=== PATIENT | male | born 1990 | race Caucasian/White ===

== ENCOUNTER 2016-08-26 20:30 | Inpatient (IN) | payer BC ==
[~2016-08-26] VITALS: Ht 177.8 cm; Wt 90.9 kg
[2016-08-26] MEDS ORDERED: BUPRTAB51 PO (21:19)
[2016-08-26] MEDS ORDERED: FLUO20CA35 PO (21:20)
[2016-08-26] MEDS ORDERED: SODIUM CHLORIDE 0.9% 1000ML 1,000 ML IV STA ×2 (21:32→22:13)
[2016-08-26] MEDS ORDERED: ONDANSETRON INJ 2 MG/ML 2 ML VIAL IV STA (21:32)
[2016-08-26 21:42] LABS: BASO % 0.1 %; BASO ABS # 0.02 K/uL (0-0.2); COMPLETE YES; EOS % 2.7 %; HEMATOCRIT 43.2 % (42-52); IG% 0.3 %; LYMPH ABS # 1.17 K/uL (1.2-3.4); MEAN CELL VOLUME 81.8 fL (80-100); MEAN CORPUSCULAR HEMOGLOBIN 28.8 pg (25-34); MEAN CORPUSCULAR HGB CONC 35.2 g/dl (32-36); MONO % 7.6 %; NEUT % 81.3 %; PLATELET COUNT 300 K/uL (130-400); RED BLOOD COUNT 5.28 M/uL (4.7-6.1); WHITE BLOOD COUNT 14.63 K/uL (4.8-10.8)
[2016-08-26 22:02] LABS: BUN/CREATININE RATIO 13.3 (10-20); CALCIUM 8.6 mg/dl (8.5-10.1); CREATININE 0.84 mg/dl (0.60-1.40); POTASSIUM 3.9 mmol/L (3.5-5.1)
[2016-08-26 22:05] LABS: ALB/GLOB RATIO 0.9 (0.9-2)
[2016-08-26] MEDS ORDERED: HYDROmorphone INJ 1 MG/ML SYR IV STA (22:13)
[2016-08-26] MEDS ORDERED: KETOROLAC TROMETHAMINE 30 MG/ML VIAL IV STA (22:13)
[2016-08-26] MEDS ORDERED: OPTIRAY 320 IV PRN (22:30)
--- NOTE | 2016-08-26 22:59 | DIAGNOSTIC IMAGING REPORT ---
GALLBLADDER-ABD LIMITED CLINICAL HISTORY: upper abd pain COMPARISON STUDY: No previous studies for comparison. FINDINGS: The liver appears sonographically normal. The pancreas appears normal as visualized. There is no ductal dilatation. The common bile duct measures 4 mm. Multiple gallstones are visualized. There is borderline gallbladder wall thickening (4 mm). There is no pericholecystic fluid. There is no right-sided hydronephrosis. There is a complex 19 mm right renal cyst. IMPRESSION: 1. Cholelithiasis with borderline gallbladder wall thickening. No evidence of pericholecystic fluid. No evidence of ductal dilatation. 2. Mildly complex 19 mm lower pole right renal cyst 3. No hepatic or pancreatic abnormalities identified. Electronically signed by: Jadon Sweet M.D. 08/26/2016 10:57 PM
--- NOTE | 2016-08-26 23:38 | EMERGENCY ROOM VISIT NOTE ---
History Report prepared by Elly: Aravidn Orr Under the Supervision of: Dr. Eber Lopez M.D. First contact with patient: 21:30 Chief Complaint: ABDOMINAL PAIN Stated Complaint: STOMACH CRAMPS Nursing Triage Summary: pt c/o severe mid abd pain x the past 2-3 days. worsening. vomiting x1 after meds on sunday. denies current n/v/d History of Present Illness The patient is a 25 year old male who presents to the Emergency Room with complaints of persistent abdominal pain for the past three days. The patient notes that the pain is mostly in the right upper abdomen. He also complains of nausea, vomiting, and diarrhea. He notes that the pain worsened tonight and so he presented to the ED for further evaluation. Source of History: patient Onset: 3 days Position: abdomen (RUQ) Timing: worsening, other (persistent) Associated Symptoms: + diarrhea, + nausea, + vomiting Review of Systems See HPI for pertinent positives & negatives. A total of 10 systems reviewed and were otherwise negative. Past Medical & Surgical Medical Problems: (1) No pertinent past medical history Family History Patient reports no known family medical history. Social History Smoking Status: Current Every Day Smoker Occupation Status: employed Current/Historical Medications Scheduled Bupropion (Wellbutrin-Xl), 300 MG PO BID Fluoxetine (Prozac), 20 MG PO DAILY Allergies Coded Allergies: Amoxicillin (Verified Allergy, Mild, RASH, 08/27/16) Physical Exam Vital Signs Date Time Temp Pulse Resp B/P Pulse Ox O2 Delivery O2 Flow Rate FiO2 08/27/16 00:04 82 18 161/94 99 Room Air 08/26/16 21:10 75 08/26/16 20:53 36.8 08/26/16 20:32 81 22 151/102 96 Room Air Physical Exam CONSTITUTIONAL: Moderate to severe painful distress HEENT: No icterus, moist mucous membranes NECK: No meningismus, trachea is midline. CARDIOVASCULAR: Regular rate, normal perfusion RESPIRATORY: Unlabored breathing. Clear to auscultation. GASTROINTESTINAL: Moderate RUQ tenderness GENITOURINARY: No flank tenderness MUSCULOSKELETAL: Full range of motion NEUROLOGIC: No acute gross focal deficits. PSYCHIATRIC: Normal affect SKIN: Normal for ethnicity. Medical Decision & Procedures ER Provider Diagnostic Interpretation: US results as stated below per my review and radiologist interpretation. GALLBLADDER-ABD LIMITED CLINICAL HISTORY: upper abd pain COMPARISON STUDY: No previous studies for comparison. FINDINGS: The liver appears sonographically normal. The pancreas appears normal as visualized. There is no ductal dilatation. The common bile duct measures 4 mm. Multiple gallstones are visualized. There is borderline gallbladder wall thickening (4 mm). There is no pericholecystic fluid. There is no right-sided hydronephrosis. There is a complex 19 mm right renal cyst. IMPRESSION: 1. Cholelithiasis with borderline gallbladder wall thickening. No evidence of pericholecystic fluid. No evidence of ductal dilatation. 2. Mildly complex 19 mm lower pole right renal cyst 3. No hepatic or pancreatic abnormalities identified. Electronically signed by: Jadon Sweet M.D. 08/26/2016 10:[address] ABDOMEN & PELVIS Suggestion of wall thickening and pericholecystic edema through no radiopaque gallstone is seen. Could represent acute acalculous cholecystis. Dedicated ultrasound may be useful. Vague bandlike hypodensities in the anterior left and right hepatic lobe (series 2, image 26). Probably due to transient hepatic attenuation/ enhancement differences. No definite mass effect. Right renal hypodensity, probably a simple cyst. Question mild fatty infiltration of the descending colonic wall. Could be due to chronic inflammatory bowel disease. Correlate clinically. Remainder of examination shows no definite evidence for an acute inflammatory process. Laboratory Results 08/26/16 21:04 Red Blood Count 5.28, Mean Corpuscular Volume 81.8, Mean Corpuscular Hemoglobin 28.8, Mean Corpuscular Hemoglobin Concent 35.2, Mean Platelet Volume 10.0, Neutrophils (%) (Auto) 81.3, Lymphocytes (%) (Auto) 8.0, Monocytes (%) (Auto) 7.6, Eosinophils (%) (Auto) 2.7, Basophils (%) (Auto) 0.1, Neutrophils # (Auto) 11.90, Lymphocytes # (Auto) 1.17, Monocytes # (Auto) 1.11, Eosinophils # (Auto) 0.39, Basophils # (Auto) 0.02 08/26/16 21:04 Test 08/26/16 20:50 08/26/16 21:04 08/26/16 21:32 White Blood Count 14.63 K/uL (4.8-10.8) Red Blood Count 5.28 M/uL (4.7-6.1) Hemoglobin 15.2 g/dL (14.0-18.0) Hematocrit 43.2 % (42-52) Mean Corpuscular Volume 81.8 fL (80-100) Mean Corpuscular Hemoglobin 28.8 pg (25-34) Mean Corpuscular Hemoglobin Concent 35.2 g/dl (32-36) Platelet Count 300 K/uL (130-400) Mean Platelet Volume 10.0 fL (7.4-10.4) Neutrophils (%) (Auto) 81.3 % Lymphocytes (%) (Auto) 8.0 % Monocytes (%) (Auto) 7.6 % Eosinophils (%) (Auto) 2.7 % Basophils (%) (Auto) 0.1 % Neutrophils # (Auto) 11.90 K/uL (1.4-6.5) Lymphocytes # (Auto) 1.17 K/uL (1.2-3.4) Monocytes # (Auto) 1.11 K/uL (0.11-0.59) Eosinophils # (Auto) 0.39 K/uL (0-0.5) Basophils # (Auto) 0.02 K/uL (0-0.2) RDW Standard Deviation 40.5 fL (36.4-46.3) RDW Coefficient of Variation 13.4 % (11.5-14.5) Immature Granulocyte % (Auto) 0.3 % Immature Granulocyte # (Auto) 0.04 K/uL (0.00-0.02) Anion Gap 10.0 mmol/L (3-11) Est Creatinine Clear Calc Drug Dose 152.4 ml/min Estimated GFR () 141.0 Estimated GFR (Non- 121.7 BUN/Creatinine Ratio 13.3 (10-20) Calcium Level 8.6 mg/dl (8.5-10.1) Total Bilirubin 0.3 mg/dl (0.2-1) Direct Bilirubin 0.1 mg/dl (0-0.2) Aspartate Amino Transf (AST/SGOT) 23 U/L (15-37) Alanine Aminotransferase (ALT/SGPT) 57 U/L (12-78) Alkaline Phosphatase 102 U/L (45-117) Total Protein 8.0 gm/dl (6.4-8.2) Albumin 3.8 gm/dl (3.4-5.0) Globulin 4.2 gm/dl (2.5-4.0) Albumin/Globulin Ratio 0.9 (0.9-2) Lipase 80 U/L (73-393) Labs reviewed by ED physician. Medications Administered Medications (Trade) Dose Ordered Sig/Jason Route Start Time Stop Time Status Last Admin Dose Admin Sodium Chloride (Nss 1000ml) 1,000 ml @ 0 mls/hr Q0M STAT IV 08/26/16 21:32 08/26/16 21:33 DC 08/26/16 21:44 0 MLS/HR Ondansetron HCl 4 mg 4 mg NOW STAT IV 08/26/16 21:32 08/26/16 21:33 DC 08/26/16 21:44 4 MG Sodium Chloride (Nss 1000ml) 1,000 ml @ 0 mls/hr Q0M STAT IV 08/26/16 22:13 08/26/16 22:15 DC 08/26/16 22:13 0 MLS/HR Ketorolac Tromethamine (Toradol Inj) 30 mg NOW STAT IV 08/26/16 22:13 08/26/16 22:15 DC 08/26/16 22:21 30 MG Hydromorphone HCl (Dilaudid Inj) 1 mg PRN STAT IV 08/26/16 22:13 08/26/16 22:15 DC 08/26/16 22:21 1 MG Hydromorphone HCl (Dilaudid Inj) 1 mg PRN STAT IV 08/27/16 00:05 08/27/16 00:07 DC 08/27/16 00:05 1 MG ED Course 0: Past medical records reviewed. The patient was evaluated in room A10. A complete history and physical examination was performed. 2: Ordered Zofran Inj 4 mg IV, NSS 1000 ml @ 0 mls/hr Wide Open IV. 3: Ordered Dilaudid Inj 1 mg IV, Toradol Inj 30 mg IV, NSS 1000 ml @ 0 mls/ hr wide open IV. 2230: Ordered Ioversol 125 ml IV/ Interaction Checking 2344: At this time, I consulted with Dr. Kruger about the patient's case and he requested that the patient go to a hospitalist before he sees him in the morning. 0004: At this time, I discussed the patient's case with Dr. Brandon Rudd and he agreed to accept the patient for further evaluation. Medical Decision Differentials include cholecystitis, pancreatitis, or viral syndrome. 25-year-old presents into the emergency room for evaluation of worsening upper abdominal pain for 2-3 days associated with nonbilious nonbloody vomiting and diarrhea at times. He appeared very uncomfortable with moderate to severe epigastric and right upper quadrant tenderness but without rebound or guarding. Ultrasound concerning for cholecystitis in context of visible cholelithiasis as well as leukocytosis. Case discussed with Dr. Kruger who will see patient in morning and admission arranged with Dr. Jatinder jean baptiste/ [facility] hospitalist service. Consults Time Called: [id number] Consulting Physician: Dr. Kruger - [facility] Returned Call: [phone] At this time, I consulted with Dr. Kruger about the patient's case and he requested that the patient go to a hospitalist before he sees him in the morning. Additional Consults: Time Called: 2339 Consulted Physician: Dr. Taylor - [facility] Rudd Returned Call: [phone] Additional Comments: At this time, I discussed the patient's case with Dr. Taylor - [facility]ael[facility] Rudd and he agreed to accept the patient for further evaluation. Impression Primary Impression: Cholecystitis Scribe Attestation The scribe's documentation has been prepared under my direction and personally reviewed by me in its entirety. I confirm that the note above accurately reflects all work, treatment, procedures, and medical decision making performed by me. Departure Information Dispostion Being Evaluated By Hospitalist Referrals Ny Miranda D.O. (PCP)
[2016-08-27] VITALS (9 sets, daily range): BP systolic 117–142; BP diastolic 72–89; PULSE 79–120; TEMP 36.6–36.9; O2SAT 90–96; Ht 177.8 cm; Wt 90.9 kg
[2016-08-27] MEDS ORDERED: HYDROmorphone INJ 1 MG/ML SYR IV STA (00:05)
[2016-08-27] MEDS ORDERED: TRAMADOL HCL 50 MG TAB PO PRN (00:30)
[2016-08-27] MEDS ORDERED: LACTATED RINGER'S 1000ML 1,000 ML IV SCH (00:30)
[2016-08-27] MEDS ORDERED: ONDANSETRON INJ 2 MG/ML 2 ML VIAL IV PRN ×3 (00:30→11:30)
[2016-08-27 00:45] LABS: URINE APPEARANCE CLEAR (CLEAR); URINE BILIRUBIN NEG (NEG); URINE COLOR YELLOW; URINE NITRITE NEG (NEG); URINE PH 6.5 (4.5-7.5); URINE SPECIFIC GRAVITY > 1.045 (1.000-1.030); UROBILINOGEN NEG (NEG)
[2016-08-27 00:47] LABS: MANUAL MICROSCOPIC REQUIRED? NO; REVIEW REQ? NO
[2016-08-27 00:48] LABS: MAGNESIUM 2.4 mg/dl (1.8-2.4); THYROID STIMULATING HORMONE 1.29 uIu/ml (0.300-4.500)
[2016-08-27] MEDS ORDERED: METRONIDAZOLE 500MG / 100ML NSS IV STA (00:54)
[2016-08-27] MEDS ORDERED: CIPROFLOXACIN 400MG / 200ML D5W IV STA (00:54)
[2016-08-27] MEDS ORDERED: LORAZEPAM 2 MG/ML 1 ML VIAL IV PRN (01:00)
[2016-08-27] MEDS ORDERED: METRONIDAZOLE 500MG / 100ML NSS ONE (01:03)
[2016-08-27] MEDS ORDERED: CIPROFLOXACIN 400MG / 200ML D5W ONE (01:03)
[2016-08-27] MEDS ORDERED: MoRPHine SULFATE 4 MG/ML 1 ML CARP\\VIAL IV STA (01:05)
[2016-08-27] MEDS ORDERED: PROMETHAZINE HCL INJ 12.5 MG in SODIUM CHLORIDE 0.9% 50ML 50 ML IV PRN (01:30)
[2016-08-27] MEDS ORDERED: ACETAMINOPHEN 325 MG TAB PO PRN ×2 (01:30→22:15)
[2016-08-27] MEDS ORDERED: LORAZEPAM 2 MG/ML 1 ML VIAL IV STA (01:31)
[2016-08-27] MEDS: LACTATED RINGER'S 1000ML 1,000 ML IV SCH ×3 (02:00→19:55)
[2016-08-27] MEDS ORDERED: CIPROFLOXACIN / D5W 400 MG in PREMIXED IN D5W 200 ML IV SCH ×2 (02:30→17:45)
[2016-08-27] MEDS ORDERED: LORAZEPAM INJ 0.5 MG in SYRINGE 0.75 ML IV PRN (02:30)
[2016-08-27] MEDS ORDERED: METRONIDAZOLE / NSS 500 MG in PREMIXED NSS 100 ML IV SCH (03:00)
[2016-08-27] MEDS ORDERED: PANTOprazole INJ 40 MG in SYRINGE 0 ML IV STA (03:46)
[2016-08-27] MEDS: MoRPHine SULFATE 4 MG/ML 1 ML CARP\\VIAL IV PRN ×2 (04:04→08:35)
[2016-08-27] MEDS: KETOROLAC TROMETHAMINE 30 MG/ML VIAL IV PRN (05:35)
--- NOTE | 2016-08-27 06:55 | DIAGNOSTIC IMAGING REPORT ---
CT SCAN OF THE ABDOMEN AND PELVIS WITH IV CONTRAST CLINICAL HISTORY: Upper abdominal pain and cramping. COMPARISON STUDY: Abdominal ultrasound dated 08/26/2016. TECHNIQUE: Following the IV administration of 115 cc of Optiray 320, CT scan of the abdomen and pelvis is performed from the lung bases to the proximal femora. Images are reviewed in the axial, sagittal, and coronal planes. IV contrast was administered without complication. Automated dose control exposure was utilized. CT DOSE: 681.18 mGy.cm FINDINGS: Lung bases: The heart is normal in size and without pericardial effusion. Atelectasis is noted at the right lung base. The lung bases are otherwise clear. Liver: The contrast-enhanced liver is enlarged, measuring 20.8 cm in length. The liver demonstrates diffusely diminished attenuation consistent with hepatic steatosis. More focal fatty infiltration is seen adjacent to falciform ligament. There is no intrahepatic biliary ductal dilatation. The hepatic veins and portal veins are patent. Gallbladder: The gallbladder is distended. There is gallbladder wall thickening with pericholecystic stranding and fluid. The appearance is consistent with acute cholecystitis. Spleen: The spleen is mildly enlarged, measuring 13.6 cm in length. Pancreas: Unremarkable. Adrenal glands: Unremarkable. Kidneys: The contrast enhanced kidneys are normal in size and without hydronephrosis. The kidneys enhance symmetrically. There is a 2.5 cm cyst in the right lower pole. Abdominal vasculature: The abdominal aorta is normal in course and caliber. Bowel: The small bowel and colon are normal in course and caliber. The appendix is well-visualized and normal. Peritoneum: There is no intraperitoneal free air. There is a small fat-containing umbilical hernia. Lymphadenopathy: None. Pelvic viscera: The bladder, prostate, and seminal vesicles are normal as visualized. Trace free fluid is identified in the pelvis. Penile calcifications are incidentally noted. Skeletal structures: No lytic or blastic lesions are seen. IMPRESSION: 1. Findings are consistent with acute cholecystitis. Surgical consultation is advised. 2. Hepatomegaly and hepatic steatosis. 3. Mild splenomegaly. 4. There is trace free fluid in the pelvis, likely reactive. Electronically signed by: Arturo Coffey M.D. 08/27/2016 6:53 AM
[2016-08-27 06:57] LABS: BASO % 0.1 %; BASO ABS # 0.02 K/uL (0-0.2); COMPLETE YES; EOS % 0.3 %; HEMATOCRIT 40.2 % (42-52); IG% 0.2 %; LYMPH % 5.9 %; LYMPH ABS # 0.94 K/uL (1.2-3.4); MEAN CELL VOLUME 82.9 fL (80-100); MEAN CORPUSCULAR HEMOGLOBIN 28.9 pg (25-34); MEAN CORPUSCULAR HGB CONC 34.8 g/dl (32-36); MEAN PLATELET VOLUME 10.1 fL (7.4-10.4); MONO % 8.3 %; NEUT % 85.2 %; PLATELET COUNT 270 K/uL (130-400); RED BLOOD COUNT 4.85 M/uL (4.7-6.1); WHITE BLOOD COUNT 15.98 K/uL (4.8-10.8)
[2016-08-27 07:26] LABS: ALT/SGPT 47 U/L (12-78); BLOOD UREA NITROGEN 8 mg/dl (7-18); BUN/CREATININE RATIO 13.4 (10-20); CALCIUM 8.1 mg/dl (8.5-10.1); CARBON DIOXIDE 24 mmol/L (21-32); CHLORIDE 104 mmol/L (98-107); CREATININE 0.58 mg/dl (0.60-1.40); GLUCOSE 122 mg/dl (70-99); POTASSIUM 3.7 mmol/L (3.5-5.1); SODIUM 137 mmol/L (136-145)
[2016-08-27 07:29] LABS: ALB/GLOB RATIO 0.8 (0.9-2); ALKALINE PHOSPHATASE 88 U/L (45-117); AST/SGOT 20 U/L (15-37)
--- NOTE | 2016-08-27 08:16 | Pre-Operative Consultation ---
History General Date of Service: Aug 27, 2016. HPI HPI: The patient is a 25 year old male being seen for acute cholecystitis. He presented with 3 days of intermittent abdominal pain which got worse last night. The patient notes that the pain is mostly in the right upper abdomen. He also complains of nausea, vomiting, and diarrhea. An ultrasound shows acute cholecystitis. 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; left sided residual deficit) Past Surgical History: no surgical history Family History Family History: no pertinent family hx Social History Hx Tobacco Use In Past Year?: Yes Smoking Status: Current Every Day Smoker Alcohol: none Drug Use: none Marital status: single Housing status: lives with family Occupation status: student Allergies Allergies: Coded Allergies: Amoxicillin (Verified Allergy, Mild, RASH, 08/27/16) Medications Current Inpatient Medications Current Inpatient Medications Medications (Trade) Dose Ordered Sig/Jason Route Start Time Stop Time Status Last Admin Dose Admin Ioversol (Optiray 320) 125 ml UD PRN IV 08/26/16 22:30 08/30/16 22:29 Tramadol HCl (Ultram Tab) 25 mg Q6H PRN PO 08/27/16 00:30 09/26/16 00:29 08/27/16 02:31 25 MG Morphine Sulfate (MoRPHine SULFATE INJ) 4 mg Q3H PRN IV 08/27/16 00:30 08/27/16 04:04 4 MG Ondansetron HCl (Zofran Inj) 4 mg Q6H PRN IV 08/27/16 00:30 09/26/16 00:29 Lorazepam 0.5 mg 0.5 mg Q4H PRN IV 08/27/16 01:00 Lactated Ringer's (Lr 1000ml) 1,000 ml @ 100 mls/hr Q10H IV 08/27/16 02:00 09/26/16 01:59 08/27/16 02:00 100 MLS/HR Acetaminophen (Tylenol Tab) 650 mg Q4H PRN PO 08/27/16 01:30 09/26/16 01:29 Bupropion HCl (Wellbutrin-Xl Tab) 300 mg BID PO 08/27/16 09:00 09/26/16 08:59 Fluoxetine HCl 20 mg 20 mg DAILY PO 08/27/16 09:00 09/26/16 08:59 Promethazine HCl 12.5 mg/Sodium Chloride 50.5 ml @ 204 mls/hr Q6H PRN IV 08/27/16 01:30 09/26/16 01:29 Ciprofloxacin/ Dextrose 400 mg/ Prmx 200 ml @ 100 mls/hr Q12H IV 08/27/16 13:00 09/06/16 12:59 Metronidazole/Prmx (Flagyl / Nss/ Premixed Nss) 100 ml @ 100 mls/hr Q8H IV 08/27/16 09:00 09/06/16 08:59 Ketorolac Tromethamine 30 mg 30 mg Q6H PRN IV 08/27/16 02:30 09/01/16 02:29 08/27/16 05:35 30 MG Lorazepam/Syringe (Ativan Inj/ Syringe) 1 ml @ 1 mls/min Q4H PRN IV 08/27/16 02:30 09/26/16 02:29 Review of Systems Review of Systems Constitutional: denies chills, denies diaphoresis, denies fever, denies weakness Eyes: reports: no symptoms ENT: reports: no symptoms reported Cardiovascular: denies: chest pain, chest pressure, chest tightness, palpitations, syncope Respiratory: denies: cough, cyanosis, short of breath, stridor Gastrointestinal: abdominal pain, denies constipation, denies diarrhea, nausea , vomiting Genitourinary - Male: reports: no symptoms Musculoskeletal: denies back pain, denies joint pain, denies joint swelling, denies muscle stiffness, denies neck pain Integumentary: denies change in color, denies change in hair/nails, denies dryness, denies lumps, denies rash Neurologic: reports: focal weakness, denies: general weakness Psychiatric: reports: no symptoms Endocrine: no symptoms Hematologic / Lymphatic: no symptoms Allergic / Immunologic: no symptoms Physical Exam Physical Exam General Appearance: + WD/WN, No distress Ears, Nose, Throat: + normal ENT inspection Neck: No abnormal inspection, No lymphadenophy, No stiffness, No tenderness, No tracheal deviation Respiratory: No decreased breath sounds, No rhonchi, No stridor, No wheezing Cardiovascular: No bradycardia, No diastolic murmur, No gallop/S3, No gallop/S4 , No systolic murmur, No tachycardia Abdomen: + abnormal bowel sounds, + distension, + guarding, + tenderness, No hernia, No rebound Extremities: No calf tenderness, No deformity, No inflammation, No swelling Neurologic/Psychiatric: No disorientation, No motor deficit/weakness, No sensory deficit Skin Characteristics: No abnormal color, No cyanosis, No diaphoresis, No jaundice, No pallor, No rash Lymphatic: No abnormal adenopathy Diagnostics Labs Labs Results Past 24 Hours Test 08/26/16 20:50 08/26/16 21:04 08/27/16 00:27 08/27/16 06:12 Range/Units Influenza Type A Antigen Neg for Influ A NEG Influenza Type B Antigen Neg for Influ B NEG White Blood Count 14.63 15.98 4.8-10.8 K/uL Red Blood Count 5.28 4.85 4.7-6.1 M/uL Hemoglobin 15.2 14.0 14.0-18.0 g/dL Hematocrit 43.2 40.2 42-52 % Mean Corpuscular Volume 81.8 82.9 80-100 fL Mean Corpuscular Hemoglobin 28.8 28.9 25-34 pg Mean Corpuscular Hemoglobin Concent 35.2 34.8 32-36 g/dl Platelet Count 300 270 130-400 K/uL Mean Platelet Volume 10.0 10.1 7.4-10.4 fL Neutrophils (%) (Auto) 81.3 85.2 % Lymphocytes (%) (Auto) 8.0 5.9 % Monocytes (%) (Auto) 7.6 8.3 % Eosinophils (%) (Auto) 2.7 0.3 % Basophils (%) (Auto) 0.1 0.1 % Neutrophils # (Auto) 11.90 13.62 1.4-6.5 K/uL Lymphocytes # (Auto) 1.17 0.94 1.2-3.4 K/uL Monocytes # (Auto) 1.11 1.32 0.11-0.59 K/uL Eosinophils # (Auto) 0.39 0.05 0-0.5 K/uL Basophils # (Auto) 0.02 0.02 0-0.2 K/uL RDW Standard Deviation 40.5 40.7 36.4-46.3 fL RDW Coefficient of Variation 13.4 13.5 11.5-14.5 % Immature Granulocyte % (Auto) 0.3 0.2 % Immature Granulocyte # (Auto) 0.04 0.03 0.00-0.02 K/uL Sodium Level 141 137 136-145 mmol/L Potassium Level 3.9 3.7 3.5-5.1 mmol/L Chloride Level 106 104 98-107 mmol/L Carbon Dioxide Level 25 24 21-32 mmol/L Anion Gap 10.0 9.0 3-11 mmol/L Blood Urea Nitrogen 11 8 7-18 mg/dl Creatinine 0.84 0.58 0.60-1.40 mg/dl Est Creatinine Clear Calc Drug Dose 152.4 220.7 ml/min Estimated GFR () 141.0 > 150.0 Estimated GFR (Non- 121.7 141.7 BUN/Creatinine Ratio 13.3 13.4 10-20 Random Glucose 128 122 70-99 mg/dl Calcium Level 8.6 8.1 8.5-10.1 mg/dl Magnesium Level 2.4 1.8-2.4 mg/dl Total Bilirubin 0.3 0.5 0.2-1 mg/dl Direct Bilirubin 0.1 0-0.2 mg/dl Aspartate Amino Transf (AST/SGOT) 23 20 15-37 U/L Alanine Aminotransferase (ALT/SGPT) 57 47 12-78 U/L Alkaline Phosphatase 102 88 45-117 U/L Total Protein 8.0 7.1 6.4-8.2 gm/dl Albumin 3.8 3.2 3.4-5.0 gm/dl Globulin 4.2 3.9 2.5-4.0 gm/dl Albumin/Globulin Ratio 0.9 0.8 0.9-2 Lipase 80 73-393 U/L Thyroid Stimulating Hormone (TSH) 1.290 0.300-4.500 uIu/ml Urine Color YELLOW Urine Appearance CLEAR CLEAR Urine pH 6.5 4.5-7.5 Urine Specific [place] > 1.045 1.000-1.030 Urine Protein NEG NEG Urine Glucose (UA) NEG NEG Urine Ketones NEG NEG Urine Occult Blood NEG NEG Urine Nitrite NEG NEG Urine Bilirubin NEG NEG Urine Urobilinogen NEG NEG Urine Leukocyte Esterase NEG NEG Diagnostic Radiology Diagnostic Radiology CT SCAN OF THE ABDOMEN AND PELVIS WITH IV CONTRAST CLINICAL HISTORY: Upper abdominal pain and cramping. COMPARISON STUDY: Abdominal ultrasound dated 08/26/2016. TECHNIQUE: Following the IV administration of 115 cc of Optiray 320, CT scan of the abdomen and pelvis is performed from the lung bases to the proximal femora. Images are reviewed in the axial, sagittal, and coronal planes. IV contrast was administered without complication. Automated dose control exposure was utilized. CT DOSE: 681.18 mGy.cm FINDINGS: Lung bases: The heart is normal in size and without pericardial effusion. Atelectasis is noted at the right lung base. The lung bases are otherwise clear. Liver: The contrast-enhanced liver is enlarged, measuring 20.8 cm in length. The liver demonstrates diffusely diminished attenuation consistent with hepatic steatosis. More focal fatty infiltration is seen adjacent to falciform ligament. There is no intrahepatic biliary ductal dilatation. The hepatic veins and portal veins are patent. Gallbladder: The gallbladder is distended. There is gallbladder wall thickening with pericholecystic stranding and fluid. The appearance is consistent with acute cholecystitis. Spleen: The spleen is mildly enlarged, measuring 13.6 cm in length. Pancreas: Unremarkable. Adrenal glands: Unremarkable. Kidneys: The contrast enhanced kidneys are normal in size and without hydronephrosis. The kidneys enhance symmetrically. There is a 2.5 cm cyst in the right lower pole. Abdominal vasculature: The abdominal aorta is normal in course and caliber. Bowel: The small bowel and colon are normal in course and caliber. The appendix is well-visualized and normal. Peritoneum: There is no intraperitoneal free air. There is a small fat-containing umbilical hernia. Lymphadenopathy: None. Pelvic viscera: The bladder, prostate, and seminal vesicles are normal as visualized. Trace free fluid is identified in the pelvis. Penile calcifications are incidentally noted. Skeletal structures: No lytic or blastic lesions are seen. IMPRESSION: 1. Findings are consistent with acute cholecystitis. Surgical consultation is advised. 2. Hepatomegaly and hepatic steatosis. 3. Mild splenomegaly. 4. There is trace free fluid in the pelvis, likely reactive. Impression Assessment and Plan Assessment and Plan Acute cholecystitis -IV abx -IVF -to OR for lap zoran this AM
[2016-08-27] MEDS: METRONIDAZOLE / NSS 500 MG in PREMIXED NSS 100 ML IV SCH ×2 (08:35→17:08)
[2016-08-27] MEDS ORDERED: ROCURONIUM BROMIDE 10 MG/ML 5 ML VIAL ONE (08:50)
[2016-08-27] MEDS ORDERED: MIDAZOLAM HCL 1 MG/ML 2ML VIAL ONE (08:50)
[2016-08-27] MEDS ORDERED: FENTANYL CITRATE INJ 50 MCG/1 ML 2 ML VIAL ONE ×3 (08:50→10:04)
[2016-08-27] MEDS ORDERED: LIDOCAINE HCL 2% 2 ML VIAL (20MG/ML) ONE (08:50)
[2016-08-27] MEDS ORDERED: PROPOFOL IV EMULSION 10 MG/ML 20 ML VIAL IV ONE (08:50)
[2016-08-27] MEDS ORDERED: ONDANSETRON INJ 2 MG/ML 2 ML VIAL ONE (09:25)
--- NOTE | 2016-08-27 09:40 | HISTORY & PHYSICAL EXAMINATION ---
DATE OF ADMISSION: 08/27/2016 OUTPATIENT PRIMARY CARE DOCTOR: Dr. Ny Miranda. Hx obtained from px and records. CHIEF COMPLAINT: Abdominal pain. HISTORY OF PRESENT ILLNESS: Medical history significant for traumatic brain injury, attention deficit disorder, anxiety disorder, ongoing tobacco abuse, A few days history of achy mid abdominal pain with nausea and vomiting after meal of a cheeseburger. No fever, no chills, no shortness of breath. May have had a previous episode before related to meals. Patient brought to Emergency Room. MEDICAL HISTORY: As above. SURGERIES: Craniotomy from childhood, orthopedic procedures. HOME MEDICATIONS: Include bupropion, fluoxetine. FAMILY HISTORY: Hypertension. PERSONAL AND SOCIAL HISTORY: A few cigarettes a day. No chronic intake of alcoholic beverages. student. REVIEW OF SYSTEMS: As per HPI, all other ROS negative. PHYSICAL EXAMINATION: VITAL SIGNS: Blood pressure was noted to be 120/80, pulse rate 81, RR 18, temperature 36.6, sats 98 on room air. GENERAL: Noted to be uncomfortable. No respiratory distress. SKIN : normal color HEENT: [place] palpebral conjunctivae. Dry mucosa. NECK: No JVD. supple CHEST: Clear to auscultation. HEART: Regular rate and rhythm. ABDOMEN: Cosme sign. EXTREMITIES: No LE edema. No tenderness. NEUROLOGIC: No gross focality. LABS: Hemoglobin was noted to be 15, hematocrit 40, white blood cell count 14, platelets 200. Sodium 140, potassium 3.9, chloride 100, CO2 27, BUN 11, creatinine 0.8, glucose 120. LFTs, lipase were normal. CT of the abdomen and pelvis initial read showed possible acute acalculous cholecystitis ASSESSMENT: 1. Acute cholecystitis no sepsis. 2. History of traumatic brain injury 3. anxiety, on meds. 4. ongoing tobacco abuse PLAN: GMF Analgesia, antiemetics, anxiolytic prn Cipro and Flagyl. Surgery consult RE acute cholecystitis ER MD already in touch with Dr. Kruger, surgeon inventory control supervisor. N.p.o. sips until seen by Surgery. px counselled to stop smoking DVT prophylaxis, SCDs. Full code. MTDD
[2016-08-27] MEDS ORDERED: BUPIVACAINE/EPINEPHRINE 0.5% MPF 1:200,000 30 ML VIAL INJ ONE ×2 (09:43→10:42)
[2016-08-27] MEDS ORDERED: MoRPHine SULFATE 2 MG/ML CARP ONE (10:22)
[2016-08-27] MEDS ORDERED: GLYCOPYRROLATE INJ 0.2 MG/ML VIAL ONE (10:28)
[2016-08-27] MEDS ORDERED: NEOSTIGMINE METHYLSULFATE 5 MG/5 ML SYR ONE (10:28)
--- NOTE | 2016-08-27 11:00 | [facility] Post Operative Brief Note ---
Immediate Operative Summary Operative Date Aug 27, 2016. Pre-Operative Diagnosis CHOLECYSTITIS Post-Operative Diagnosis SAME PREOP Procedure(s) Performed LAPAROSCOPIC CHOLECYSTECTOMY Surgeon DR. LYNN Electric Razor Mechanic Surgeon(s) DR DUMONT Estimated Blood Loss 50ml Findings Acute inflammation Specimens GALL BLADDER Drains Aly in GB fossa Anesthesia GETA W/marcaine Complication(s) None Disposition Recovery Room / PACU
[2016-08-27] MEDS ORDERED: EpHEDrine SULFATE INJ 50 MG/ML AMP IV PRN (11:30)
[2016-08-27] MEDS ORDERED: FENTANYL CITRATE INJ 50 MCG/1 ML 2 ML VIAL IV PRN (11:30)
[2016-08-27] MEDS ORDERED: ATROPINE SULFATE 0.1 MG/ML 5ML SYR IV PRN (11:30)
[2016-08-27] MEDS: BuPROPion XL 300 MG TABCR PO SCH ×2 (13:23→21:00)
[2016-08-27] MEDS: FLUOXETINE HCL 20 MG CAP PO SCH (13:23)
[2016-08-27] MEDS: CIPROFLOXACIN / D5W 400 MG in PREMIXED IN D5W 200 ML IV SCH (13:24)
[2016-08-27] MEDS ORDERED: MoRPHine SULFATE 4 MG/ML 1 ML CARP\\VIAL IV PRN (13:45)
--- NOTE | 2016-08-27 14:13 | OPERATIVE REPORT ---
DATE OF OPERATION: 08/27/2016 PREOPERATIVE DIAGNOSIS: Acute cholecystitis. POSTOPERATIVE DIAGNOSIS: Same. PROCEDURE PERFORMED: Laparoscopic cholecystectomy. SURGEON: Dr. Natan Vicente. GENERAL INTERNAL MEDICINE PHYSICIAN: Dr. Travis Kruger. ANESTHESIA: General endotracheal with 0.5% Marcaine with epinephrine local, 20 mL. ESTIMATED BLOOD LOSS: 50 mL. DRAINS: Aly drain left in the gallbladder fossa. COMPLICATIONS: None. SPECIMENS: Gallbladder sent for pathologic evaluation. INDICATION FOR PROCEDURE: This is a 25-year-old male who came in last night with complaints of abdominal pain. Had a workup with CT and ultrasound showing likely an acute cholecystitis. He was placed on IV fluids, IV antibiotics and will be taken to the OR for laparoscopic cholecystectomy. We talked about the risk of an open procedure, common bile duct injury, retained common bile duct stone, postop bile leak, bleeding and possible reoperation or CT-guided drainage. He understands this and wishes to proceed. DESCRIPTION OF PROCEDURE: The patient was taken to the OR and underwent excellent general endotracheal anesthesia. His abdomen was prepped and draped in normal sterile fashion. Transverse supraumbilical incision was made and dissection was taken down to identify his anterior fascia. Two Vicryls placed in either side of midline. The midline was incised sharply. Manuel trocar was then inserted. Good pneumoperitoneum achieved to 15 mmHg pressure. An 11 subxiphoid and two 5 lateral ports were placed in normal fashion. This was converted to a 12 in the subxiphoid at a later time. The patient was placed in head up and rolled to the left. An obvious near gangrenous gallbladder. This was aspirated, it was just bile-colored fluid. Grasper was used to grasp the fundus and retracted superiorly. The neck was then not identified because of adhesions. These adhesions were taken down with sharp and blunt dissection. The neck of the gallbladder was densely adherent. At this time, Dr. Kruger came in to assist with the case. Using alternating sharp and blunt dissection, the cystic duct and artery were identified. There was a medial and lateral window created in the gallbladder and gallbladder fossa showing these structures going to the gallbladder. Once this critical view was seen, 2 clips were placed proximally in the cystic artery and one distally in the cystic artery. The cystic artery was transected. Once this was done, this facilitated really identifying the duct and there was a stone within the duct which was milked proximally. The duct was dilated and very friable; therefore, it was elected to close this with the MARYCARMEN stapler. A 45 gagnon load MARYCARMEN stapler was then used to transect the cystic duct, 2 clips were placed at the edge to reinforce the closure. The staple line was intact. Once this was done, the gallbladder was then used removing the laparoscopic clip. Gallbladder was brought out with an Endobag and sent for pathologic evaluation. Pneumoperitoneum was reestablished. The gallbladder fossa was checked. There was some bleeding which was cauterized. Because of the inflammation and about 50 mL of blood loss a Aly drain was placed in the gallbladder fossa. This was secured with a nylon suture brought out through lateral port. Ports were then removed. 0 Vicryl was used to close the fascial defect. 3-0 Vicryl was used to close the subQ space. 0.5% Marcaine with epinephrine local was used to create a local field block. Steri-Strips and benzoin were used to reinforce the incision after the skin was closed with interrupted Vicryls. Sterile dressings were applied. He tolerated the procedure well without any complications, sent to post-recovery for a period of observation and be discharged to his room once he meets criteria. I attest to the content of the Intraoperative Record and any orders documented therein. Any exceptio ns are noted below.
--- NOTE | 2016-08-27 17:40 | Progress Note ---
Progress Note ATTENDING NOTE : pt was admitted earlier today please see H&P for detail his is a 25-year-old male admitted last night for abdominal pain CT abdomen /pelvis showed acute cholecystitis. Surgery consulted pt was taken to the OR s/p laparoscopic cholecystectomy. as per operative note -found to have gangrenous gall bladder cholecystectomy was done , Black drain was left in gall bladder fossa post op -pt feels abdominal pain has improved pain at surgical site with movement found to be tachycardic HR 120's no fever no nausea , tolerating clears P/E : anxious , mentions of having pain with movement due to drain present HEENT: sclera non icteric HT : regular /Tachycardic Abdomen : periumbilical and RUQ laparoscopic sites intact , dressing present , mild oozing of blood at the dressing , Drain present on RUQ -minimum amount of serosanguineous drainage bowel sound diminished Sinus tachycardia : due to post op pain /discomfort and anxiety increased IVF to 200 ml no evidence of sepsis repeat CBC shows improvement of leukocytosis /Hb stable Elevation of AST/ALT /Alk phos -due to post cholecystectomy repeat LFT 's in AM Lactic acid -wnl cont pain control , PRN Ativan for anxiety increased IVF to 200 ml Surgery started on IV Cipro /Flagyl post op -should be adequate coverage for gram negative /anaerobes -common GI tract pathogen cont to monitor clinically Father given update at bedside
[2016-08-27 17:51] LABS: HEMATOCRIT 41.4 % (42-52); MEAN CORPUSCULAR HEMOGLOBIN 29.9 pg (25-34); MEAN PLATELET VOLUME 9.8 fL (7.4-10.4); PLATELET COUNT 268 K/uL (130-400); RED BLOOD COUNT 4.99 M/uL (4.7-6.1); WHITE BLOOD COUNT 12.87 K/uL (4.8-10.8)
[2016-08-27 18:15] LABS: ALB/GLOB RATIO 0.7 (0.9-2); ALKALINE PHOSPHATASE 113 U/L (45-117); ALT/SGPT 127 U/L (12-78); AST/SGOT 128 U/L (15-37); BLOOD UREA NITROGEN 5 mg/dl (7-18); BUN/CREATININE RATIO 7.8 (10-20); CALCIUM 7.9 mg/dl (8.5-10.1); CARBON DIOXIDE 23 mmol/L (21-32); CHLORIDE 103 mmol/L (98-107); CREATININE 0.67 mg/dl (0.60-1.40); GLUCOSE 118 mg/dl (70-99); POTASSIUM 3.9 mmol/L (3.5-5.1); SODIUM 137 mmol/L (136-145)
[2016-08-27] MEDS ORDERED: IBUPROFEN 200 MG TAB PO PRN (22:15)
[2016-08-28] MEDS: MoRPHine SULFATE 2 MG/ML CARP IV PRN ×2 (00:35→05:04)
[2016-08-28] MEDS: CIPROFLOXACIN / D5W 400 MG in PREMIXED IN D5W 200 ML IV SCH ×2 (00:48→12:43)
[2016-08-28] MEDS: LACTATED RINGER'S 1000ML 1,000 ML IV SCH ×3 (00:49→15:04)
[2016-08-28] MEDS: METRONIDAZOLE / NSS 500 MG in PREMIXED NSS 100 ML IV SCH ×3 (01:32→18:36)
[2016-08-28 04:00] VITALS: BP 117/74; PULSE 117; TEMP 37.2; O2SAT 87
[2016-08-28 04:05] VITALS: PULSE 113; O2SAT 92
[2016-08-28 06:53] LABS: MEAN CELL VOLUME 82.6 fL (80-100); MEAN CORPUSCULAR HGB CONC 35.1 g/dl (32-36); MEAN PLATELET VOLUME 9.4 fL (7.4-10.4); PLATELET COUNT 249 K/uL (130-400); RED BLOOD COUNT 4.72 M/uL (4.7-6.1); WHITE BLOOD COUNT 11.45 K/uL (4.8-10.8)
--- NOTE | 2016-08-28 07:01 | Surgery Progress Note ---
Surgery Progress Note Date of Service Aug 28, 2016. Subjective Post OP Day: 1 + diet (clears), + feeling well, + flatus, + pain controlled, No bowel movement , No nausea, No vomiting Objective Vital Signs: Date Time Temp Pulse Resp B/P Pulse Ox O2 Delivery O2 Flow Rate FiO2 08/28/16 04:05 113 92 Nasal Cannula 2.0 08/28/16 04:00 37.2 117 18 117/74 87 Room Air 08/28/16 00:25 Room Air 08/27/16 22:54 36.8 108 16 128/81 90 Room Air 08/27/16 19:45 Room Air 08/27/16 19:36 36.6 104 18 117/78 91 Room Air 08/27/16 17:18 120 08/27/16 15:37 104 08/27/16 15:26 Nasal Cannula 08/27/16 15:11 36.9 112 18 119/72 96 Nasal Cannula 2.0 08/27/16 13:10 95 21 127/89 95 Nasal Cannula 2.0 08/27/16 12:30 Nasal Cannula 08/27/16 12:30 Nasal Cannula 2.0 08/27/16 12:10 36.6 90 131/84 95 2.0 08/27/16 11:45 37.0 83 16 139/84 96 Nasal Cannula 3 08/27/16 11:35 80 16 123/80 96 Nasal Cannula 3 08/27/16 11:25 80 16 132/77 97 Nasal Cannula 3 08/27/16 11:15 78 16 125/79 98 Mask 7 08/27/16 11:06 36.9 79 18 133/75 100 Mask 7 08/27/16 07:49 36.7 81 17 142/81 94 Room Air Physical Exam: Aly drainage (serosanguinous) General Appearance: WD/WN, no apparent distress Head: normocephalic, atraumatic Neck: supple, trachea midline Respiratory/Chest: lungs clear Cardiovascular: regular rate, rhythm Abdomen: normal bowel sounds, non distended, soft, + tenderness (moderate) Incision(s): clean, dry, intact Extremities: non-tender, no pedal edema Laboratory Results: Results Past 24 Hours Test 08/27/16 17:40 08/28/16 06:45 Range/Units White Blood Count 12.87 11.45 4.8-10.8 K/uL Red Blood Count 4.99 4.72 4.7-6.1 M/uL Hemoglobin 14.9 13.7 14.0-18.0 g/dL Hematocrit 41.4 39.0 42-52 % Mean Corpuscular Volume 83.0 82.6 80-100 fL Mean Corpuscular Hemoglobin 29.9 29.0 25-34 pg Mean Corpuscular Hemoglobin Concent 36.0 35.1 32-36 g/dl RDW Standard Deviation 41.0 41.3 36.4-46.3 fL RDW Coefficient of Variation 13.6 13.6 11.5-14.5 % Platelet Count 268 249 130-400 K/uL Mean Platelet Volume 9.8 9.4 7.4-10.4 fL Sodium Level 137 136-145 mmol/L Potassium Level 3.9 3.5-5.1 mmol/L Chloride Level 103 98-107 mmol/L Carbon Dioxide Level 23 21-32 mmol/L Anion Gap 11.0 3-11 mmol/L Blood Urea Nitrogen 5 7-18 mg/dl Creatinine 0.67 0.60-1.40 mg/dl Est Creatinine Clear Calc Drug Dose 191.1 ml/min Estimated GFR () > 150.0 Estimated GFR (Non- 133.5 BUN/Creatinine Ratio 7.8 10-20 Random Glucose 118 70-99 mg/dl Lactic Acid Level 1.4 0.4-2.0 mmol/L Calcium Level 7.9 8.5-10.1 mg/dl Total Bilirubin 1.4 0.2-1 mg/dl Aspartate Amino Transf (AST/SGOT) 128 15-37 U/L Alanine Aminotransferase (ALT/SGPT) 127 12-78 U/L Alkaline Phosphatase 113 45-117 U/L Total Protein 6.8 6.4-8.2 gm/dl Albumin 2.9 3.4-5.0 gm/dl Globulin 3.9 2.5-4.0 gm/dl Albumin/Globulin Ratio 0.7 0.9-2 Assessment & Plan s/p lap zoran w/acute near gangrenous cholecystitis -needs IV abx 2 more days -begin diet -IVF
[2016-08-28 07:03] VITALS: BP 125/79; PULSE 113; TEMP 36.7; O2SAT 93
[2016-08-28 07:23] LABS: ALKALINE PHOSPHATASE 110 U/L (45-117); ALT/SGPT 112 U/L (12-78); AST/SGOT 82 U/L (15-37); BLOOD UREA NITROGEN 4 mg/dl (7-18); BUN/CREATININE RATIO 6.6 (10-20); CALCIUM 7.9 mg/dl (8.5-10.1); CARBON DIOXIDE 25 mmol/L (21-32); CHLORIDE 102 mmol/L (98-107); CREATININE 0.58 mg/dl (0.60-1.40); GLUCOSE 120 mg/dl (70-99); POTASSIUM 3.8 mmol/L (3.5-5.1); SODIUM 136 mmol/L (136-145)
[2016-08-28] MEDS: OXYCODONE/ACETAMINOPHEN 5-325 TAB PO PRN ×3 (07:43→21:13)
[2016-08-28] MEDS: BuPROPion XL 300 MG TABCR PO SCH ×2 (08:33→21:00)
[2016-08-28] MEDS: FLUOXETINE HCL 20 MG CAP PO SCH (08:34)
--- NOTE | 2016-08-28 13:21 | Urology Consultation ---
History General Date of Service: Aug 28, 2016. Chief Complaint: penile lump Primary Care Physician: Ny Miranda D.O. Pt seen a urologist before?: No History of Present Illness I am asked by Dr Taylor to evaluate lump on penis It is not bothersome painful or draining. Patient never noticed it before. The nurse noted it when she was instructed to straight cath him for post-op retention. Laboratory Labs were reviewed and are within normal limits unless listed below. Labs are available in the chart and at [facility] Problem List Medical Problems: (1) Cholecystitis Status: Acute Family History Patient reports no known family medical history. Social History Hx Tobacco Use In Past Year?: Yes Marital status: single Housing status: lives with family Occupation status: student Allergies Coded Allergies: Amoxicillin (Verified Allergy, Mild, RASH, 08/27/16) Medications Home Medications: Home Meds and Scripts Medications Dose Route/Sig Max Daily Dose Days Date Category Prozac (Fluoxetine HCl) 20 Mg Cap 20 Mg PO DAILY 08/26/16 Reported Wellbutrin-Xl (Bupropion HCl) 300 Mg Tabcr 300 Mg PO BID 08/26/16 Reported Inpatient Medications: Current Inpatient Medications Medications (Trade) Dose Ordered Sig/Jason Route Start Time Stop Time Status Last Admin Dose Admin Ioversol (Optiray 320) 125 ml UD PRN IV 08/26/16 22:30 08/30/16 22:29 Tramadol HCl (Ultram Tab) 25 mg Q6H PRN PO 08/27/16 00:30 09/26/16 00:29 08/27/16 02:31 25 MG Ondansetron HCl (Zofran Inj) 4 mg Q6H PRN IV 08/27/16 00:30 09/26/16 00:29 Lorazepam 0.5 mg 0.5 mg Q4H PRN IV 08/27/16 01:00 Lactated Ringer's (Lr 1000ml) 1,000 ml @ 100 mls/hr Q10H IV 08/27/16 02:00 08/28/16 06:38 200 MLS/HR Bupropion HCl (Wellbutrin-Xl Tab) 300 mg BID PO 08/27/16 09:00 09/26/16 08:59 08/28/16 08:33 300 MG Fluoxetine HCl 20 mg 20 mg DAILY PO 08/27/16 09:00 09/26/16 08:59 08/28/16 08:34 20 MG Promethazine HCl 12.5 mg/Sodium Chloride 50.5 ml @ 204 mls/hr Q6H PRN IV 08/27/16 01:30 09/26/16 01:29 Ciprofloxacin/ Dextrose 400 mg/ Prmx 200 ml @ 100 mls/hr Q12H IV 08/27/16 13:00 09/06/16 12:59 08/28/16 12:43 100 MLS/HR Metronidazole/Prmx (Flagyl / Nss/ Premixed Nss) 100 ml @ 100 mls/hr Q8H IV 08/27/16 09:00 09/06/16 08:59 08/28/16 08:33 100 MLS/HR Ketorolac Tromethamine 30 mg 30 mg Q6H PRN IV 08/27/16 02:30 09/01/16 02:29 08/27/16 05:35 30 MG Lorazepam/Syringe (Ativan Inj/ Syringe) 1 ml @ 1 mls/min Q4H PRN IV 08/27/16 02:30 09/26/16 02:29 Morphine Sulfate (MoRPHine SULFATE INJ) 2 mg Q1H PRN IV 08/27/16 11:00 08/28/16 05:04 2 MG Oxycodone/ Acetaminophen (Percocet 5-325MG Tab) `1-2 tabs for pain 1 tab ... Q4H PRN PO 08/27/16 11:00 09/10/16 10:59 08/28/16 12:43 1 TAB Ibuprofen (Advil Tab) 400 mg Q6H PRN PO 08/27/16 22:15 09/26/16 22:14 Acetaminophen (Tylenol Tab) 650 mg Q6H PRN PO 08/27/16 22:15 09/26/16 22:14 Physical Exam Vital Signs: Vital Signs Past 12 Hours Date Time Temp Pulse Resp B/P Pulse Ox O2 Delivery O2 Flow Rate FiO2 08/28/16 07:45 Room Air 08/28/16 07:03 36.7 113 22 125/79 93 Nasal Cannula 2.0 08/28/16 04:05 113 92 Nasal Cannula 2.0 08/28/16 04:00 37.2 117 18 117/74 87 Room Air Physical Exam: General Appearance: WD/WN, no apparent distress Genitourinary - Male: Penis: pertinent finding (there is a 15mm soft round cystic mass int he left foreskin with a central pit. There is no tenderness or erythema. ) Assessment & Plan Assessment & Plan foreskin lump epidermal inclusion cyst looks to be a longstanding issue which the patient never noticed before. is harmless and nothing needs to be done about it.
[2016-08-28 15:10] VITALS: BP 110/72; PULSE 105; TEMP 36.6; O2SAT 93
[2016-08-28] MEDS: KETOROLAC TROMETHAMINE 30 MG/ML VIAL IV PRN (15:40)
[2016-08-28 16:30] VITALS: O2SAT 93
--- NOTE | 2016-08-28 20:56 | Progress Note ---
Internal Med Progress Note Date of Service: Aug 28, 2016. Provider Documentation: SUBJECTIVE: pain has improved no nausea or vomiting, no fever diet advanced to full liquid , tolerating well OBJECTIVE: Vital Signs-as noted below Exam: Gen: no apparent distress HEENT: sclera non icteric HT : regular /Tachycardic Abdomen : periumbilical and RUQ laparoscopic sites intact , dressing present , bowel sound diminished EXT: no rash or deformity Neuro : no focal neurological deficit , Lab data as noted below. ASSESSMENT & PLAN: ACUTE CHOLECYSTIS : s/p lap zoran for acute near gangrenous cholecystitis POD # 1 recovering well no fever or chills leukocytosis has improved on Empiric ABx with IV Cipro /Flagyl appreciate input form Surgery -needs IV abx 2 more days will need total 10 days of tx diet advanced to Full liquid MILD ELEVATION OF AST /ALT : due to post cholecystectomy status improving with IV fluids repeat LFT tomorrow SINUS TACHYCARDIA : due to pain /anxiety cont pain control PRN Ativan for anxiety Cont IVF FULL CODE DVT PROPHYLAXIS scd and teds ambulate DISPOSITION Discharge home when medically stable Vital Signs: Date Time Temp Pulse Resp B/P Pulse Ox O2 Delivery O2 Flow Rate FiO2 08/28/16 16:30 93 Room Air 08/28/16 15:10 36.6 105 20 110/72 93 Room Air 08/28/16 07:45 Room Air 08/28/16 07:03 36.7 113 22 125/79 93 Nasal Cannula 2.0 08/28/16 04:05 113 92 Nasal Cannula 2.0 08/28/16 04:00 37.2 117 18 117/74 87 Room Air 08/28/16 00:25 Room Air 08/27/16 22:54 36.8 108 16 128/81 90 Room Air Lab Results: Results Past 24 Hours Test 08/28/16 06:45 Range/Units White Blood Count 11.45 4.8-10.8 K/uL Red Blood Count 4.72 4.7-6.1 M/uL Hemoglobin 13.7 14.0-18.0 g/dL Hematocrit 39.0 42-52 % Mean Corpuscular Volume 82.6 80-100 fL Mean Corpuscular Hemoglobin 29.0 25-34 pg Mean Corpuscular Hemoglobin Concent 35.1 32-36 g/dl RDW Standard Deviation 41.3 36.4-46.3 fL RDW Coefficient of Variation 13.6 11.5-14.5 % Platelet Count 249 130-400 K/uL Mean Platelet Volume 9.4 7.4-10.4 fL Sodium Level 136 136-145 mmol/L Potassium Level 3.8 3.5-5.1 mmol/L Chloride Level 102 98-107 mmol/L Carbon Dioxide Level 25 21-32 mmol/L Anion Gap 9.0 3-11 mmol/L Blood Urea Nitrogen 4 7-18 mg/dl Creatinine 0.58 0.60-1.40 mg/dl Est Creatinine Clear Calc Drug Dose 220.7 ml/min Estimated GFR () > 150.0 Estimated GFR (Non- 141.7 BUN/Creatinine Ratio 6.6 10-20 Random Glucose 120 70-99 mg/dl Lactic Acid Level 0.8 0.4-2.0 mmol/L Calcium Level 7.9 8.5-10.1 mg/dl Total Bilirubin 1.2 0.2-1 mg/dl Direct Bilirubin 0.4 0-0.2 mg/dl Aspartate Amino Transf (AST/SGOT) 82 15-37 U/L Alanine Aminotransferase (ALT/SGPT) 112 12-78 U/L Alkaline Phosphatase 110 45-117 U/L Total Protein 6.5 6.4-8.2 gm/dl Albumin 2.6 3.4-5.0 gm/dl Lipase 70 73-393 U/L
[2016-08-28 23:00] VITALS: BP 119/72; PULSE 96; TEMP 36.7; O2SAT 92
[2016-08-29] MEDS: METRONIDAZOLE / NSS 500 MG in PREMIXED NSS 100 ML IV SCH ×3 (00:41→16:51)
[2016-08-29] MEDS: CIPROFLOXACIN / D5W 400 MG in PREMIXED IN D5W 200 ML IV SCH ×2 (00:41→12:48)
[2016-08-29] MEDS: LACTATED RINGER'S 1000ML 1,000 ML IV SCH (00:42)
[2016-08-29 07:05] VITALS: BP 123/82; PULSE 107; TEMP 36.4; O2SAT 93
[2016-08-29] MEDS: OXYCODONE/ACETAMINOPHEN 5-325 TAB PO PRN ×2 (07:12→16:56)
[2016-08-29 07:32] LABS: HEMATOCRIT 37.9 % (42-52); MEAN CELL VOLUME 82.2 fL (80-100); MEAN CORPUSCULAR HEMOGLOBIN 28.6 pg (25-34); MEAN CORPUSCULAR HGB CONC 34.8 g/dl (32-36); MEAN PLATELET VOLUME 9.7 fL (7.4-10.4); PLATELET COUNT 305 K/uL (130-400); RED BLOOD COUNT 4.61 M/uL (4.7-6.1); WHITE BLOOD COUNT 8.28 K/uL (4.8-10.8)
--- NOTE | 2016-08-29 08:12 | Surgery Progress Note ---
Surgery Progress Note Date of Service Aug 29, 2016. Subjective Post OP Day: 2 + ambulating, + complaints (still with pain requiring IV meds), + diet (fulls), + flatus, No nausea, No vomiting Objective Vital Signs: Date Time Temp Pulse Resp B/P Pulse Ox O2 Delivery O2 Flow Rate FiO2 08/29/16 07:05 36.4 107 16 123/82 93 Room Air 08/29/16 00:43 Room Air 08/28/16 23:00 36.7 96 18 119/72 92 Room Air 08/28/16 16:30 93 Room Air 08/28/16 15:10 36.6 105 20 110/72 93 Room Air Physical Exam: Aly drainage (slowing) General Appearance: WD/WN, no apparent distress Head: normocephalic, atraumatic Neck: supple, trachea midline Respiratory/Chest: lungs clear Cardiovascular: regular rate, rhythm Abdomen: normal bowel sounds, non distended, soft, + tenderness Incision(s): clean, dry, intact Extremities: non-tender, no calf tenderness Laboratory Results: Results Past 24 Hours Test 08/29/16 07:05 Range/Units White Blood Count 8.28 4.8-10.8 K/uL Red Blood Count 4.61 4.7-6.1 M/uL Hemoglobin 13.2 14.0-18.0 g/dL Hematocrit 37.9 42-52 % Mean Corpuscular Volume 82.2 80-100 fL Mean Corpuscular Hemoglobin 28.6 25-34 pg Mean Corpuscular Hemoglobin Concent 34.8 32-36 g/dl RDW Standard Deviation 41.0 36.4-46.3 fL RDW Coefficient of Variation 13.6 11.5-14.5 % Platelet Count 305 130-400 K/uL Mean Platelet Volume 9.7 7.4-10.4 fL Total Bilirubin 0.6 0.2-1 mg/dl Direct Bilirubin 0.2 0-0.2 mg/dl Aspartate Amino Transf (AST/SGOT) 45 15-37 U/L Alanine Aminotransferase (ALT/SGPT) 82 12-78 U/L Alkaline Phosphatase 101 45-117 U/L Total Protein 6.5 6.4-8.2 gm/dl Albumin 2.6 3.4-5.0 gm/dl Lipase 72 73-393 U/L Assessment & Plan s/p lap zoran w/acute near gangrenous cholecystitis -needs IV till tomorrow -advance diet -LFTs pending -decrease IVF
[2016-08-29] MEDS: BuPROPion XL 300 MG TABCR PO SCH ×2 (09:01→21:03)
[2016-08-29] MEDS: FLUOXETINE HCL 20 MG CAP PO SCH (09:01)
[2016-08-29] MEDS ORDERED: NURSING DECISION MEDICATION ORDER SCH (10:15)
[2016-08-29 15:26] VITALS: BP 107/70; PULSE 90; TEMP 36.8; O2SAT 94
--- NOTE | 2016-08-29 16:22 | Progress Note ---
Medicine Progress Note Date & Time of Visit: Aug 29, 2016 at 16:18. Subjective patient seen sitting up in bedside chair, comfortable abdominal pain is better, no nausea (+) BM today tolerating full liquids well no other symptoms Objective Last 8 Hrs Date Time Temp Pulse Resp B/P Pulse Ox O2 Delivery O2 Flow Rate FiO2 08/29/16 15:26 36.8 90 20 107/70 94 Room Air Physical Exam: General- oriented x 3, not in distress Head- atraumatic Eyes-EOMI, anicteric Neck- supple, no JVD Lungs- clear to auscultation bilaterally Heart- normal rate, regular rhythm; no murmurs Abdomen- normal bowel sounds, non distended, surgical site healing well, SAEID drain in place with serosanguinous output soft, nontender Extremities- no pretibial edema, no calf tenderness; peripheral pulses intact Neuro- alert, oriented x 3; no gross focal deficits Skin- warm & dry Laboratory Results: Last 24 Hours Test 08/29/16 07:05 White Blood Count 8.28 K/uL Red Blood Count 4.61 M/uL Hemoglobin 13.2 g/dL Hematocrit 37.9 % Mean Corpuscular Volume 82.2 fL Mean Corpuscular Hemoglobin 28.6 pg Mean Corpuscular Hemoglobin Concent 34.8 g/dl RDW Standard Deviation 41.0 fL RDW Coefficient of Variation 13.6 % Platelet Count 305 K/uL Mean Platelet Volume 9.7 fL Total Bilirubin 0.6 mg/dl Direct Bilirubin 0.2 mg/dl Aspartate Amino Transf (AST/SGOT) 45 U/L Alanine Aminotransferase (ALT/SGPT) 82 U/L Alkaline Phosphatase 101 U/L Total Protein 6.5 gm/dl Albumin 2.6 gm/dl Lipase 72 U/L Assessment & Plan ACUTE CHOLECYSTIS s/p lap zoran for acute near gangrenous cholecystitis POD # 2 - afebrile leukocytosis resolvede - on Cipro and Flagyl Day 3 - appreciate Gen Surg SVC recommendations MILD ELEVATION OF AST /ALT : due to post cholecystectomy status LFTs improving SINUS TACHYCARDIA : due to pain /anxiety cont pain control resolving FULL CODE DVT PROPHYLAXIS scd and teds ambulate DISPOSITION d/c home when cleared by surgery Current Inpatient Medications: Current Inpatient Medications Medications (Trade) Dose Ordered Sig/Jason Route Start Time Stop Time Status Last Admin Dose Admin Ioversol (Optiray 320) 125 ml UD PRN IV 08/26/16 22:30 08/30/16 22:29 Tramadol HCl (Ultram Tab) 25 mg Q6H PRN PO 08/27/16 00:30 09/26/16 00:29 08/27/16 02:31 25 MG Ondansetron HCl (Zofran Inj) 4 mg Q6H PRN IV 08/27/16 00:30 09/26/16 00:29 Lorazepam (Ativan Inj) 0.5 mg Q4H PRN IV 08/27/16 01:00 Bupropion HCl (Wellbutrin-Xl Tab) 300 mg BID PO 08/27/16 09:00 09/26/16 08:59 08/29/16 09:01 300 MG Fluoxetine HCl 20 mg 20 mg DAILY PO 08/27/16 09:00 09/26/16 08:59 08/29/16 09:01 20 MG Promethazine HCl 12.5 mg/Sodium Chloride 50.5 ml @ 204 mls/hr Q6H PRN IV 08/27/16 01:30 09/26/16 01:29 Ciprofloxacin/ Dextrose 400 mg/ Prmx 200 ml @ 100 mls/hr Q12H IV 08/27/16 13:00 09/06/16 12:59 08/29/16 12:48 100 MLS/HR Metronidazole/Prmx (Flagyl / Nss/ Premixed Nss) 100 ml @ 100 mls/hr Q8H IV 08/27/16 09:00 09/06/16 08:59 08/29/16 09:01 100 MLS/HR Ketorolac Tromethamine 30 mg 30 mg Q6H PRN IV 08/27/16 02:30 09/01/16 02:29 08/28/16 15:40 30 MG Lorazepam/Syringe (Ativan Inj/ Syringe) 1 ml @ 1 mls/min Q4H PRN IV 08/27/16 02:30 09/26/16 02:29 Morphine Sulfate (MoRPHine SULFATE INJ) 2 mg Q1H PRN IV 08/27/16 11:00 08/28/16 05:04 2 MG Oxycodone/ Acetaminophen (Percocet 5-325MG Tab) `1-2 tabs for pain 1 tab ... Q4H PRN PO 08/27/16 11:00 09/10/16 10:59 08/29/16 07:12 1 TAB Ibuprofen (Advil Tab) 400 mg Q6H PRN PO 08/27/16 22:15 09/26/16 22:14 Acetaminophen (Tylenol Tab) 650 mg Q6H PRN PO 08/27/16 22:15 09/26/16 22:14
[2016-08-29 20:45] VITALS: O2SAT 94
[2016-08-29 23:30] VITALS: BP 120/78; PULSE 90; TEMP 36.8; O2SAT 94
[2016-08-30] MEDS: CIPROFLOXACIN / D5W 400 MG in PREMIXED IN D5W 200 ML IV SCH (00:04)
[2016-08-30] MEDS: METRONIDAZOLE / NSS 500 MG in PREMIXED NSS 100 ML IV SCH ×2 (00:04→08:57)
[2016-08-30] MEDS: OXYCODONE/ACETAMINOPHEN 5-325 TAB PO PRN (01:11)
[2016-08-30] MEDS ORDERED: OXYC-57 PO (07:06)
--- NOTE | 2016-08-30 07:10 | Discharge Instructions ---
Discharge Instructions Admission Reason for Admission: Cholecystitis Discharge Discharge Diagnosis / Problem: s/p laparoscopic cholecystectomy Discharge Goals Goal(s): Therapeutic intervention Activity Recommendations Activity Limitations: as noted below Lifting Limitations: no more than 25 pounds Exercise/Sports Limitations: none, until after follow-up appointment May Resume Sexual Activity: when tolerated Shower/Bathe: no limitations Driving or Machine Use: resume 3 days after discharge (as long as not taking narcotics) . Instructions / Follow-Up Instructions / Follow-Up Jules; 2 weeks; [phone] Current Hospital Diet Patient's current hospital diet: Full Liquid Diet Discharge Diet Recommended Diet: Regular Diet Procedures Procedures Performed: LAPAROSCOPIC CHOLECYSTECTOMY Pending Studies Studies pending at discharge: no Work Instructions Return To Work: after follow-up Lifting Limitations: no more than 20 pounds School Instructions Return To School: time frame (as long as no strenuous activity and as tolerated ) Medical Emergencies . Who to Call and When: Medical Emergencies: If at any time you feel your situation is an emergency, please call 911 immediately. . Non-Emergent Contact Non-Emergency issues call your: Primary Care Provider, Surgeon Call Non-Emergent contact if: temperature is above 101.5, your pain is worsening, your pain is concerning you, wound has increased pain, you have any medication questions . "Provider Documentation" section prepared by Pedro Vicente. VTE Core Measure Inpt VTE Proph given/why not?: SCD's [place] Drug Monitoring Program Search Results: patient reviewed within database
--- NOTE | 2016-08-30 07:18 | Surgery Progress Note ---
Surgery Progress Note Date of Service Aug 30, 2016. Subjective Post OP Day: 3 + bowel movement, + feeling well, + pain controlled, No nausea, No vomiting Objective Vital Signs: Date Time Temp Pulse Resp B/P Pulse Ox O2 Delivery O2 Flow Rate FiO2 08/29/16 23:55 Room Air 08/29/16 23:30 36.8 90 20 120/78 94 Room Air 08/29/16 20:45 94 Room Air 08/29/16 15:26 36.8 90 20 107/70 94 Room Air 08/29/16 08:15 Room Air Physical Exam: Aly drainage (will remove) General Appearance: WD/WN, no apparent distress Head: normocephalic, atraumatic Neck: supple, trachea midline Respiratory/Chest: lungs clear Cardiovascular: regular rate, rhythm Abdomen: normal bowel sounds, non distended, soft, + tenderness (mild) Incision(s): dry, intact Extremities: non-tender, no pedal edema Laboratory Results: Results Past 24 Hours Test 08/30/16 04:44 Range/Units Assessment & Plan s/p lap zoran w/acute near gangrenous cholecystitis -advance diet -LFTs normalizing -home per medical team -discharge instructions in chart
[2016-08-30 08:06] VITALS: BP 124/82; PULSE 88; TEMP 36.5; O2SAT 93
[2016-08-30] MEDS: FLUOXETINE HCL 20 MG CAP PO SCH (08:57)
[2016-08-30] MEDS: BuPROPion XL 300 MG TABCR PO SCH (08:58)
[2016-08-30 08:59] LABS: BASO % 0.1 %; BASO ABS # 0.01 K/uL (0-0.2); COMPLETE YES; EOS % 5.9 %; HEMATOCRIT 38.9 % (42-52); IG% 0.3 %; LYMPH % 18.3 %; LYMPH ABS # 1.31 K/uL (1.2-3.4); MEAN CELL VOLUME 81.9 fL (80-100); MEAN CORPUSCULAR HEMOGLOBIN 28.6 pg (25-34); MEAN PLATELET VOLUME 9.3 fL (7.4-10.4); MONO % 12.4 %; PLATELET COUNT 351 K/uL (130-400); RED BLOOD COUNT 4.75 M/uL (4.7-6.1); WHITE BLOOD COUNT 7.17 K/uL (4.8-10.8)
[2016-08-30 09:34] LABS: BLOOD UREA NITROGEN 6 mg/dl (7-18); BUN/CREATININE RATIO 8.6 (10-20); CALCIUM 8.8 mg/dl (8.5-10.1); CARBON DIOXIDE 24 mmol/L (21-32); CHLORIDE 106 mmol/L (98-107); GLUCOSE 97 mg/dl (70-99); MAGNESIUM 2.2 mg/dl (1.8-2.4); POTASSIUM 3.9 mmol/L (3.5-5.1); SODIUM 140 mmol/L (136-145)
--- NOTE | 2016-08-30 11:36 | Progress Note ---
Medicine Progress Note Date & Time of Visit: Aug 30, 2016 at 11:32. Subjective seen sitting up in bedside chair, alert, pleasant, comfortable states he feels better, abdominal pain on the surgical site 11/03 no nausea, tolerating diet no chest pain, dyspnea, palpitations ambulating with no problems denies other symptoms states he is ready for discharge today Objective Last 8 Hrs Date Time Temp Pulse Resp B/P Pulse Ox O2 Delivery O2 Flow Rate FiO2 08/30/16 08:06 36.5 88 18 124/82 93 Room Air 08/30/16 07:48 Room Air Physical Exam: General- oriented x 3, not in distress Eyes-anicteric Neck- no JVD Lungs- clear to auscultation bilaterally, no rales/wheeze Heart- normal rate, regular rhythm; no murmurs Abdomen- normal bowel sounds, non distended, soft, surgical site healing well Extremities- no pretibial edema, no calf tenderness; peripheral pulses intact Neuro- alert, oriented x 3; no gross focal deficits Skin- warm & dry Laboratory Results: Last 24 Hours Test 08/30/16 07:16 08/30/16 08:48 Total Bilirubin 0.3 mg/dl Direct Bilirubin 0.1 mg/dl Aspartate Amino Transf (AST/SGOT) 18 U/L Alanine Aminotransferase (ALT/SGPT) 55 U/L Alkaline Phosphatase 92 U/L Total Protein 6.5 gm/dl Albumin 2.5 gm/dl Lipase 55 U/L White Blood Count 7.17 K/uL Red Blood Count 4.75 M/uL Hemoglobin 13.6 g/dL Hematocrit 38.9 % Mean Corpuscular Volume 81.9 fL Mean Corpuscular Hemoglobin 28.6 pg Mean Corpuscular Hemoglobin Concent 35.0 g/dl Platelet Count 351 K/uL Mean Platelet Volume 9.3 fL Neutrophils (%) (Auto) 63.0 % Lymphocytes (%) (Auto) 18.3 % Monocytes (%) (Auto) 12.4 % Eosinophils (%) (Auto) 5.9 % Basophils (%) (Auto) 0.1 % Neutrophils # (Auto) 4.52 K/uL Lymphocytes # (Auto) 1.31 K/uL Monocytes # (Auto) 0.89 K/uL Eosinophils # (Auto) 0.42 K/uL Basophils # (Auto) 0.01 K/uL RDW Standard Deviation 40.6 fL RDW Coefficient of Variation 13.4 % Immature Granulocyte % (Auto) 0.3 % Immature Granulocyte # (Auto) 0.02 K/uL Sodium Level 140 mmol/L Potassium Level 3.9 mmol/L Chloride Level 106 mmol/L Carbon Dioxide Level 24 mmol/L Anion Gap 10.0 mmol/L Blood Urea Nitrogen 6 mg/dl Creatinine 0.70 mg/dl Est Creatinine Clear Calc Drug Dose 182.9 ml/min Estimated GFR () > 150.0 Estimated GFR (Non- 131.2 BUN/Creatinine Ratio 8.6 Random Glucose 97 mg/dl Calcium Level 8.8 mg/dl Magnesium Level 2.2 mg/dl Assessment & Plan ACUTE CHOLECYSTIS s/p lap zoran for acute near gangrenous cholecystitis 08/27/16 POD # 3 - remained afebrile leukocytosis resolved tolerating diet - on Cipro and Flagyl Day 4 needs 6 more days of PO Cipro and Flagyl to complete 10 day course - ff up with Dr. Vicente next week MILD ELEVATION OF AST /ALT due to post cholecystectomy status LFTs improved SINUS TACHYCARDIA : due to pain /anxiety resolved FULL CODE DVT PROPHYLAXIS scd and teds ordered ambulate DISPOSITION d/c home today ff up with Dr. Vicente in 1 week PCP in 3-5 days Current Inpatient Medications: Current Inpatient Medications Medications (Trade) Dose Ordered Sig/Jason Route Start Time Stop Time Status Last Admin Dose Admin Ioversol (Optiray 320) 125 ml UD PRN IV 08/26/16 22:30 08/30/16 22:29 Tramadol HCl (Ultram Tab) 25 mg Q6H PRN PO 08/27/16 00:30 09/26/16 00:29 08/27/16 02:31 25 MG Ondansetron HCl (Zofran Inj) 4 mg Q6H PRN IV 08/27/16 00:30 09/26/16 00:29 Lorazepam (Ativan Inj) 0.5 mg Q4H PRN IV 08/27/16 01:00 Bupropion HCl (Wellbutrin-Xl Tab) 300 mg BID PO 08/27/16 09:00 09/26/16 08:59 08/30/16 08:58 300 MG Fluoxetine HCl 20 mg 20 mg DAILY PO 08/27/16 09:00 09/26/16 08:59 08/30/16 08:57 20 MG Promethazine HCl/ Sodium Chloride (Phenergan Inj/ Nss 50ml) 50.5 ml @ 204 mls/hr Q6H PRN IV 08/27/16 01:30 09/26/16 01:29 Ketorolac Tromethamine 30 mg 30 mg Q6H PRN IV 08/27/16 02:30 09/01/16 02:29 08/28/16 15:40 30 MG Lorazepam/Syringe (Ativan Inj/ Syringe) 1 ml @ 1 mls/min Q4H PRN IV 08/27/16 02:30 09/26/16 02:29 Morphine Sulfate (MoRPHine SULFATE INJ) 2 mg Q1H PRN IV 08/27/16 11:00 08/28/16 05:04 2 MG Oxycodone/ Acetaminophen (Percocet 5-325MG Tab) `1-2 tabs for pain 1 tab ... Q4H PRN PO 08/27/16 11:00 09/10/16 10:59 08/30/16 01:11 1 TAB Ibuprofen (Advil Tab) 400 mg Q6H PRN PO 08/27/16 22:15 09/26/16 22:14 Acetaminophen (Tylenol Tab) 650 mg Q6H PRN PO 08/27/16 22:15 09/26/16 22:14 Ciprofloxacin (Cipro Tab) 500 mg Q12 PO 08/30/16 12:00 09/06/16 12:00 Metronidazole (Flagyl Tab) 500 mg Q8 PO 08/30/16 15:00 09/06/16 08:59
--- NOTE | 2016-08-30 11:46 | Discharge Summary ---
Discharge Summary Admission Date: Aug 27, 2016 at 01:12 Discharge Date: Aug 30, 2016 Discharge Disposition: Home Principal Diagnosis: ACUTE CHOLECYSTIS Secondary Diagnoses/Problems: Please refer to hospital course below. Procedures: s/p Laparoscopic Cholecystectomy for acute near gangrenous cholecystitis 08/27/16 Consultations: Surgery Dr. Lynn, Urologist Dr. Riley Pending Studies/Follow-Up: Please refer to hospital course below. Medication Reconciliation New Medications: Oxycodone/Acetaminophen 5MG/325MG (Percocet 5MG/325MG) Tab 1 TABLET PO Q4H PRN for Pain, #30 TAB Continued Medications: Bupropion (Wellbutrin-Xl) 300 Mg Tabcr 300 MG PO BID, TAB Fluoxetine (Prozac) 20 Mg Cap 20 MG PO DAILY, CAP Admission Information HPI (per Admitting provider): CHIEF COMPLAINT: Abdominal pain. HISTORY OF PRESENT ILLNESS: Medical history significant for traumatic brain injury, attention deficit disorder, anxiety disorder, ongoing tobacco abuse, A few days history of achy mid abdominal pain with nausea and vomiting after meal of a cheeseburger. No fever, no chills, no shortness of breath. May have had a previous episode before related to meals. Patient brought to Emergency Room. Physical Exam (per Admitting): VITAL SIGNS: Blood pressure was noted to be 120/80, pulse rate 81, RR 18, temperature 36.6, sats 98 on room air. GENERAL: Noted to be uncomfortable. No respiratory distress. SKIN : normal color HEENT: [place] palpebral conjunctivae. Dry mucosa. NECK: No JVD. supple CHEST: Clear to auscultation. HEART: Regular rate and rhythm. ABDOMEN: Cosme sign. EXTREMITIES: No LE edema. No tenderness. NEUROLOGIC: No gross focality. Hospital Course ACUTE CHOLECYSTIS s/p lap zoran for acute near gangrenous cholecystitis 08/27/16 POD # 3 - remained afebrile leukocytosis resolved tolerating diet - received Cipro and Flagyl IV x [address] Lynn- does not recommend further antibiotics at this point - ff up with Dr. Lynn in 1-2 weeks PCP in 1 week MILD ELEVATION OF AST /ALT due to post cholecystectomy status LFTs improved SINUS TACHYCARDIA : due to pain /anxiety resolved FORESKIN LUMP foreskin lump epidermal inclusion cyst no intervention indicated as per Urologist Dr. Riley DISPOSITION d/c home ff up with Dr. Lynn in 1 week PCP in 3-5 days Total time spent on discharge = 30 minutes This includes examination of the patient, discharge planning, medication reconciliation, and communication with other providers. Discharge Instructions Discharge Instructions- MEDICAL Admission Reason for Admission: Cholecystitis Discharge Discharge Diagnosis / Problem: Acute Cholecystitis Discharge Goals Goal(s): Diagnostic testing, Therapeutic intervention Activity Recommendations Activity Limitations: as noted below (no heavy exertion until re-evaluated by Primary Care Physician and Surgeon) . Instructions / Follow-Up Instructions / Follow-Up FOLLOW UP WITH PRIMARY CARE PHYSICIAN DR. MCCOY AT [facility] ON Sunday09/04/16 AT 1050AM. FOLLOW UP WITH DR. LYNN (SURGEON) IN 1-2 WEEKS. TEL. NO. CALL PRIMARY CARE PHYSICIAN OR RETURN TO ER IMMEDIATELY IF WITH RECURRENCE OF SYMPTOMS, INCREASING ABDOMINAL PAIN, IF WITH WOUND DRAINAGE, REDNESS AROUND THE WOUNDS, NAUSEA/VOMITING, FEVER/CHILLS. Current Hospital Diet Patient's current hospital diet: Low Fiber Diet Discharge Diet Recommended Diet: Low Fiber Diet Procedures Procedures Performed: LAPAROSCOPIC CHOLECYSTECTOMY Pending Studies Studies pending at discharge: no Work Instructions Return To Work: after follow-up Lifting Limitations: no more than 20 pounds School Instructions Return To School: time frame (as long as no strenuous activity and as tolerated ) Medical Emergencies . Who to Call and When: Medical Emergencies: If at any time you feel your situation is an emergency, please call 911 immediately. . Non-Emergent Contact Non-Emergency issues call your: Primary Care Provider Call Non-Emergent contact if: you have a fever, your pain is worsening, wound has increased drainage, wound has increased redness, wound has increased pain, you have any medication questions . Past History Medical & Surgical History: (1) Cholecystitis (2) History of cholecystectomy (3) H/O craniotomy . "Provider Documentation" section prepared by Jake Alberto. VTE Core Measure Inpt VTE Proph given/why not?: SCD's Discharge Instructions- SURGERY Admission Reason for Admission: Cholecystitis Discharge Discharge Diagnosis / Problem: s/p laparoscopic cholecystectomy Discharge Goals Goal(s): Therapeutic intervention Activity Recommendations Activity Limitations: as noted below Lifting Limitations: no more than 25 pounds Exercise/Sports Limitations: none, until after follow-up appointment May Resume Sexual Activity: when tolerated Shower/Bathe: no limitations Driving or Machine Use: resume 3 days after discharge (as long as not taking narcotics) . Instructions / Follow-Up Instructions / Follow-Up Jules; 2 weeks; [phone] Current Hospital Diet Patient's current hospital diet: Full Liquid Diet Discharge Diet Recommended Diet: Regular Diet Procedures Procedures Performed: LAPAROSCOPIC CHOLECYSTECTOMY Pending Studies Studies pending at discharge: no Work Instructions Return To Work: after follow-up Lifting Limitations: no more than 20 pounds School Instructions Return To School: time frame (as long as no strenuous activity and as tolerated ) Medical Emergencies . Who to Call and When: Medical Emergencies: If at any time you feel your situation is an emergency, please call 911 immediately. . Non-Emergent Contact Non-Emergency issues call your: Primary Care Provider, Surgeon Call Non-Emergent contact if: temperature is above 101.5, your pain is worsening, your pain is concerning you, wound has increased pain, you have any medication questions . "Provider Documentation" section prepared by Pedro Lynn. VTE Core Measure Inpt VTE Proph given/why not?: SCD's [place] Drug Monitoring Program Search Results: patient reviewed within database
[2016-08-30] MEDS ORDERED: CIPROFLOXACIN 500 MG TAB PO SCH (12:00)
[2016-08-30 13:37] VITALS: BP 124/82; PULSE 88; TEMP 36.5; O2SAT 93
[2016-08-30] MEDS ORDERED: METRONIDAZOLE 500 MG TAB PO SCH (15:00)
[2017-02-15] MEDS ORDERED: ACET500T58 PO (18:15)
[2017-02-17] MEDS ORDERED: PRT40 PO (12:02)
[2017-02-17] MEDS ORDERED: SUCR1TAB PO (12:02)
== END 2016-08-30 14:33 | disposition home or self-care (01) | DRG 418 ==
LOC: ENRESERVDT → ENRESERVTM → C.EDB 20:31 → C.MSN 08-27 01:12
PROVIDERS: ADMIT Internal Medicine; ATTEND Internal Medicine
PROC: 0FT44ZZ Resection of Gallbladder, Percutaneous Endoscopic Approach (ICD-10-PCS; principal; 2016-08-27 08:00)
DX: K81.0 Acute cholecystitis (principal); G81.94 Hemiplegia, unspecified affecting left nondominant side; S06.890S Other specified intracranial injury without loss of consciousness, sequela; R00.0 Tachycardia, unspecified; K82.8 Other specified diseases of gallbladder; R94.5 Abnormal results of liver function studies; L72.0 Epidermal cyst; F90.0 Attention-deficit hyperactivity disorder, predominantly inattentive type; F41.9 Anxiety disorder, unspecified; F17.210 Nicotine dependence, cigarettes, uncomplicated; Z79.899 Other long term (current) drug therapy; X58.XXXS Exposure to other specified factors, sequela

== ENCOUNTER 2017-02-09 10:52 | Emergency (ER) | payer BC ==
[~2017-02-09] VITALS: Ht 180.3 cm; Wt 95.4 kg
[~2017-02-09 10:52] MED LIST: BUPRTAB51 PO; FLUO20CA35 PO; OXYC-57 PO
[2017-02-09 10:56] VITALS: TEMP 36.6; Ht 180.3 cm; Wt 95.4 kg
[2017-02-09] MEDS ORDERED: HYDROmorphone INJ 1 MG/ML SYR IV STA (11:34)
[2017-02-09] MEDS ORDERED: ONDANSETRON INJ 2 MG/ML 2 ML VIAL IV STA (11:34)
[2017-02-09] MEDS ORDERED: SODIUM CHLORIDE 0.9% 1000ML 1,000 ML IV STA (11:34)
[2017-02-09] MEDS ORDERED: KETOROLAC TROMETHAMINE 30 MG/ML VIAL IV STA (11:34)
[2017-02-09 11:38] VITALS: O2SAT 97
[2017-02-09 11:43] LABS: BASO % 0.1 %; BASO ABS # 0.01 K/uL (0-0.2); COMPLETE YES; EOS % 0.1 %; HEMATOCRIT 44.8 % (42-52); IG% 0.2 %; LYMPH % 9.8 %; LYMPH ABS # 0.96 K/uL (1.2-3.4); MEAN CELL VOLUME 81.8 fL (80-100); MEAN CORPUSCULAR HEMOGLOBIN 28.5 pg (25-34); MEAN CORPUSCULAR HGB CONC 34.8 g/dl (32-36); MEAN PLATELET VOLUME 9.5 fL (7.4-10.4); MONO % 5.6 %; NEUT % 84.2 %; PLATELET COUNT 274 K/uL (130-400); RED BLOOD COUNT 5.48 M/uL (4.7-6.1); WHITE BLOOD COUNT 9.77 K/uL (4.8-10.8)
[2017-02-09 11:51] LABS: ALT/SGPT 36 U/L (12-78); BLOOD UREA NITROGEN 9 mg/dl (7-18); BUN/CREATININE RATIO 10.9 (10-20); CARBON DIOXIDE 22 mmol/L (21-32); CHLORIDE 108 mmol/L (98-107); CREATININE 0.82 mg/dl (0.60-1.40); GLUCOSE 96 mg/dl (70-99); POTASSIUM 3.8 mmol/L (3.5-5.1); SODIUM 139 mmol/L (136-145)
[2017-02-09 11:56] LABS: ALKALINE PHOSPHATASE 81 U/L (45-117); AST/SGOT 18 U/L (15-37); CKMB/CK RATIO 0.8 (0-3.0)
[2017-02-09 11:57] LABS: ISTAT CREATININE 0.7 mg/dl (0.6-1.3); ISTAT HEMOGLOBIN 15.3 g/dl (14.0-18.0); ISTAT IONIZED CALCIUM 1.12 mmol/l (1.12-1.32)
--- NOTE | 2017-02-09 11:58 | DIAGNOSTIC IMAGING REPORT ---
CHEST ONE VIEW PORTABLE CLINICAL HISTORY: CHEST PAIN dyspnea COMPARISON STUDY: No previous studies for comparison. FINDINGS: The bones soft tissues and hemidiaphragms are normal. The cardiomediastinal silhouette is normal. The lungs are clear. The pulmonary vasculature is normal. IMPRESSION: Negative chest. Electronically signed by: Travis Singer M.D. 02/09/2017 11:57 AM Dictated Date/Time: 02/09/2017 11:57 AM
--- NOTE | 2017-02-09 12:00 | EMERGENCY ROOM VISIT NOTE ---
History Report prepared by Elly: Bhavana Medellin Under the Supervision of: Dr. Cory Bronson M.D. First contact with patient: 11:21 Chief Complaint: ILLNESS Stated Complaint: BACK/CHEST PAIN, VOMITING UP BLOOD History of Present Illness The patient is a 26 year old male who presents to the Emergency Room with complaints of worsening illness that started this morning, around 0400. The patient states that he woke up this morning around 0400 with thoracic back pain. He took ibuprofen and went to work at [employer]. The patient's mother states that on the way to work, the patient developed chest pain. He went to work anyway, but while at work he became nauseous and vomited. He states that he experienced hematemesis with dark red blood in his vomit. He states that he experienced 4-5 episodes of vomiting that was vomit mixed with blood. The patient's mother picked him up from work after he vomited. She states that when she got there, the patient was standing outside in long pants and a jacket. He was diaphoretic but stated that he was cold. The patient's mother called his PCP and they recommended coming into the ED. He states that the pain definitely started prior to becoming nauseous. He states that the pain feels like he is being stabbed multiple times. The patient had a cholecystectomy on August 27 and he had an ERCP procedure done to rule out bile duct blockage in September. The patient adds that he has a previous brain injury that causes him to have decreased sensation on his left side. Source of History: patient, parent (mother) Onset: this morning, around 0400 Position: other (global) Quality: other (illness) Timing: worsening Associated Symptoms: + chills, + diaphoresis, + chest pain, + nausea, + vomiting (hematemesis), + back pain Review of Systems See HPI for pertinent positives & negatives. A total of 10 systems reviewed and were otherwise negative. Past Medical & Surgical Medical Problems: (1) ADD (attention deficit disorder) (2) Anxiety (3) Tobacco abuse (4) Traumatic brain injury Surgical Problems: (1) H/O craniotomy (2) History of cholecystectomy Family History Patient reports no known family medical history. Social History Smoking Status: Current Every Day Smoker Alcohol Use: none Drug Use: none Marital Status: single Occupation Status: student Current/Historical Medications Scheduled Bupropion (Wellbutrin-Xl), 300 MG PO BID Fluoxetine (Prozac), 20 MG PO DAILY Ondasetron Odt (Zofran Odt), 4 MG SL Q6H Scheduled PRN Oxycodone/Acetaminophen 5MG/325MG (Percocet 5MG/325MG), 1-2 TAB PO Q4H PRN for Pain Allergies Coded Allergies: Amoxicillin (Verified Allergy, Mild, RASH, 02/09/17) Physical Exam Vital Signs Date Time Temp Pulse Resp B/P (MAP) Pulse Ox O2 Delivery O2 Flow Rate FiO2 02/09/17 14:06 70 18 131/89 95 02/09/17 13:09 81 02/09/17 12:26 69 18 128/85 95 Room Air 02/09/17 11:38 97 Room Air 02/09/17 11:26 97 Room Air 02/09/17 11:13 86 02/09/17 10:56 36.6 77 18 144/92 98 Room Air Physical Exam GENERAL: Patient is a healthy-appearing well-nourished male HEAD: Normocephalic atraumatic EYES: Ocular movements intact pupils equal and react to light OROPHARYNX mucous membranes are moist no exudates present no erythema or edema present NECK: Supple no nuchal rigidity CHEST: Good equal expansion, tender to left 9th and 10th ribs LUNGS: Clear and equal to auscultation CARDIAC: Normal S1 and S2 ABDOMEN: Soft nontender no guarding BACK: Exquisitely tender on back in the area of the 9th and 10th ribs. EXTREMITIES: No pain upon palpation normal muscle strength in all groups no clubbing cyanosis or edema NEURO: Patient is following commands and answering questions appropriately. Alert and oriented x3 Cranial Nerves 2-12 grossly intact Medical Decision & Procedures ER Provider Diagnostic Interpretation: Radiology results as stated below per my review and radiologist interpretation: CHEST ONE VIEW PORTABLE FINDINGS: The bones soft tissues and hemidiaphragms are normal. The cardiomediastinal silhouette is normal. The lungs are clear. The pulmonary vasculature is normal. IMPRESSION: Negative chest. Electronically signed by: Travis Singer M.D. 02/09/2017 11:57 AM Dictated Date/Time: 02/09/2017 11:[address] ANGIOGRAPHY OF THE CHEST, PULMONARY EMBOLUS PROTOCOL FINDINGS: No pulmonary emboli are identified. The size pf the heart is at the upper limits of normal. There is no evidence of thoracic aortic dissection. No enlarged axillary, mediastinal or hilar lymph nodes are present. The central airways are patent. There is no consolidation to suggest pneumonia. A 4 mm subpleural nodule within the left lower lobe shown on image 35 of 233 is likely benign. Ground glass opacities reflect atelectasis. Bony thorax and upper abdomen are unremarkable. There is bilateral gynecomastia, right greater than left. IMPRESSION: 1. No pulmonary emboli identified. 2. No acute intrathoracic findings. Electronically signed by: Chema Garcia M.D. 02/09/2017 12:25 PM Dictated Date/Time: 02/09/2017 12:17 PM Laboratory Results 02/09/17 11:20 Red Blood Count 5.48, Mean Corpuscular Volume 81.8, Mean Corpuscular Hemoglobin 28.5, Mean Corpuscular Hemoglobin Concent 34.8, Mean Platelet Volume 9.5, Neutrophils (%) (Auto) 84.2, Lymphocytes (%) (Auto) 9.8, Monocytes (%) (Auto) 5.6, Eosinophils (%) (Auto) 0.1, Basophils (%) (Auto) 0.1, Neutrophils # (Auto) 8.22, Lymphocytes # (Auto) 0.96, Monocytes # (Auto) 0.55, Eosinophils # (Auto) 0.01, Basophils # (Auto) 0.01 02/09/17 11:20 Test 02/09/17 11:20 02/09/17 11:43 White Blood Count 9.77 K/uL (4.8-10.8) Red Blood Count 5.48 M/uL (4.7-6.1) Hemoglobin 15.6 g/dL (14.0-18.0) Hematocrit 44.8 % (42-52) Mean Corpuscular Volume 81.8 fL (80-100) Mean Corpuscular Hemoglobin 28.5 pg (25-34) Mean Corpuscular Hemoglobin Concent 34.8 g/dl (32-36) Platelet Count 274 K/uL (130-400) Mean Platelet Volume 9.5 fL (7.4-10.4) Neutrophils (%) (Auto) 84.2 % Lymphocytes (%) (Auto) 9.8 % Monocytes (%) (Auto) 5.6 % Eosinophils (%) (Auto) 0.1 % Basophils (%) (Auto) 0.1 % Neutrophils # (Auto) 8.22 K/uL (1.4-6.5) Lymphocytes # (Auto) 0.96 K/uL (1.2-3.4) Monocytes # (Auto) 0.55 K/uL (0.11-0.59) Eosinophils # (Auto) 0.01 K/uL (0-0.5) Basophils # (Auto) 0.01 K/uL (0-0.2) RDW Standard Deviation 40.4 fL (36.4-46.3) RDW Coefficient of Variation 13.5 % (11.5-14.5) Immature Granulocyte % (Auto) 0.2 % Immature Granulocyte # (Auto) 0.02 K/uL (0.00-0.02) Est Creatinine Clear Calc Drug Dose 160.9 ml/min Estimated GFR () 141.5 Estimated GFR (Non- 122.0 BUN/Creatinine Ratio 10.9 (10-20) Calcium Level 8.5 mg/dl (8.5-10.1) Total Bilirubin 0.3 mg/dl (0.2-1) Direct Bilirubin < 0.1 mg/dl (0-0.2) Aspartate Amino Transf (AST/SGOT) 18 U/L (15-37) Alanine Aminotransferase (ALT/SGPT) 36 U/L (12-78) Alkaline Phosphatase 81 U/L (45-117) Total Creatine Kinase 174 U/L (39-308) Creatine Kinase MB 1.4 ng/ml (0.5-3.6) Creatine Kinase MB Ratio 0.8 (0-3.0) Troponin I < 0.015 ng/ml (0-0.045) Total Protein 7.8 gm/dl (6.4-8.2) Albumin 3.9 gm/dl (3.4-5.0) Lipase 72 U/L (73-393) Bedside Hemoglobin 15.3 g/dl (14.0-18.0) Bedside Hematocrit 45 % (42-52) Bedside Sodium 139 mEq/L (135-144) Bedside Potassium 3.8 mEq/L (3.3-5.0) Bedside Chloride 105 mEq/L (101-112) Bedside Total CO2 23 mEq/l (24-31) Anion Gap 16.0 mmol/L (16-25) Bedside Blood Urea Nitrogen 8 mg/dl (7-18) Bedside Creatinine 0.7 mg/dl (0.6-1.3) Bedside Glucose (other) 96 mg/dl (70-99) Bedside Ionized Calcium (Tami) 1.12 mmol/l (1.12-1.32) Labs reviewed by ED physician. Medications Administered Medications (Trade) Dose Ordered Sig/Jason Route Start Time Stop Time Status Last Admin Dose Admin Sodium Chloride 1,000 ml @ 999 mls/hr Q1H1M STAT IV 02/09/17 11:34 02/09/17 12:34 DC 02/09/17 11:46 999 MLS/HR Hydromorphone HCl (Dilaudid Inj) 1 mg NOW STAT IV 02/09/17 11:34 02/09/17 11:37 DC 02/09/17 11:47 1 MG Ketorolac Tromethamine (Toradol Inj) 30 mg NOW STAT IV 02/09/17 11:34 02/09/17 11:37 DC 02/09/17 11:47 30 MG Ondansetron HCl (Zofran Inj) 4 mg NOW STAT IV 02/09/17 11:34 02/09/17 11:37 DC 02/09/17 11:46 4 MG Miscellaneous Medication (Gi Cocktail) 24 ml NOW STAT PO 02/09/17 13:22 02/09/17 13:24 DC 02/09/17 13:22 24 ML Famotidine (Pepcid Tab) 20 mg NOW ONCE PO 02/09/17 13:30 02/09/17 13:31 DC 02/09/17 13:47 20 MG Sucralfate (Carafate Tab) 1 gm NOW STAT PO 02/09/17 13:22 02/09/17 13:24 DC 02/09/17 13:47 1 GM Lidocaine HCl (Viscous Lidocaine 2% Soln) 20 ml STK-MED ONCE .ROUTE 02/09/17 13:42 02/09/17 13:43 DC 02/09/17 13:47 10 ML Al Hydroxide/Mg Hydroxide (Maalox Susp) 30 ml STK-MED ONCE .ROUTE 02/09/17 13:44 02/09/17 13:45 DC 02/09/17 13:48 30 ML ECG Indication: chest pain, back/shoulder pain Rate (beats per minute): 68 Rhythm: normal sinus Findings: no acute ischemic change, no ectopy ED Course 1128: Past medical records reviewed. The patient was evaluated in room C9. A complete history and physical examination was performed. 1134: Ordered Zofran Inj 4 mg IV, Toradol Inj 30 mg IV, Dilaudid Inj 1 mg IV, Sodium Chloride 1000 ml @ 999 mls/hr IV 1322: Ordered Carafate Tab 1 gm PO, GI Cocktail 24 ml PO 1330: Ordered Pepcid 20 mg PO 1342: Ordered Lidocaine HCl 20 ml PO 1344: Ordered Maalox Susp 30 ml PO 1345: Upon reexamination the patient is doing well. I discussed results and treatment plan with the patient and his mother. They verbalize agreement and understanding. The patient is ready for discharge. Medical Decision Differential diagnosis: Etiologies such as gastroenteritis, food borne illness, infections, appendicitis , diverticulitis, inflammatory bowel disease, obstruction, GI bleed, biliary pathology, as well as others were entertained. Medication Reconciliation: I attest that I have personally reviewed the patient' s current medication list Blood pressure Screening: Patient was found to have a slightly elevated blood pressure due to circumstances. I do not believe that the patient requires hypertension monitoring. This is a 26-year-old male who presents emergency Department with vomiting. The patient is not vomiting upon arrival is complaining of chest as well as back pain. I suspect suffering from muscle skeletal pain as he has a normal CT of the chest as well as a normal CBC and renal profile. An IV was established, patient given normal saline bolus, Toradol, Dilaudid, Zofran. Repeat examination revealed improvement patient's symptoms. At this point I feel that the patient is well enough to be discharged home however I recommended returning if he develops severe chest pain again. Patient and mother were in agreement with the treatment plan. Impression Primary Impression: Gastroenteritis Scribe Attestation The scribe's documentation has been prepared under my direction and personally reviewed by me in its entirety. I confirm that the note above accurately reflects all work, treatment, procedures, and medical decision making performed by me. Departure Information Dispostion Home / Self-Care Prescriptions Oxycodone/Acetaminophen 5MG/325MG (PERCOCET 5MG/325MG) Tab 1-2 TAB PO Q4H Y for Pain, #14 TAB Prov: Cory Bronson MD 02/09/17 Ondasetron Odt (ZOFRAN ODT) 4 Mg Tab 4 MG SL Q6H for Nausea, #6 TAB Prov: Cory Bronson MD 02/09/17 Referrals Ny Miranda D.ORyan (PCP) Forms HOME CARE DOCUMENTATION FORM, IMPORTANT VISIT INFORMATION, WORK / SCHOOL INSTRUCTIONS Patient Instructions My [facility] Additional Instructions You received narcotic or benzodiazepene medication while in the emergency room today. Do not drive, operate heavy machinery, or drink alcohol under the influence of this medication. Take 600 mg Ibuprofen every 6 hours Take Percocet for breakthrough pain You have been examined and treated today on an emergency basis only. This is not a substitute for, or an effort to provide, complete comprehensive medical care. It is impossible to recognize and treat all injuries or illnesses in a single emergency department visit. It is therefore important that you follow up closely with Dr Miranda. Call as soon as possible for an appointment. Thank you for your time and consideration. I look forward to speaking with you again soon. Please don't hesitate to call us if you have any questions.
[2017-02-09 12:11] LABS: CALCIUM 8.5 mg/dl (8.5-10.1)
--- NOTE | 2017-02-09 12:26 | DIAGNOSTIC IMAGING REPORT ---
CT ANGIOGRAPHY OF THE CHEST, PULMONARY EMBOLUS PROTOCOL CLINICAL HISTORY: Left sided chest pain. Back pain. Hematemesis. COMPARISON STUDY: Chest radiograph February 09, 2017. TECHNIQUE: Following IV administration of 114 mL of Optiray-320, helical axial images of the chest were obtained utilizing the pulmonary embolus protocol. Maximal intensity projections and sagittal and coronal reformats were viewed on an independent 3D workstation. IV contrast was administered without complication. CT DOSE: 477.03 mGycm FINDINGS: No pulmonary emboli are identified. The size pf the heart is at the upper limits of normal. There is no evidence of thoracic aortic dissection. No enlarged axillary, mediastinal or hilar lymph nodes are present. The central airways are patent. There is no consolidation to suggest pneumonia. A 4 mm subpleural nodule within the left lower lobe shown on image 35 of 233 is likely benign. Ground glass opacities reflect atelectasis. Bony thorax and upper abdomen are unremarkable. There is bilateral gynecomastia, right greater than left. IMPRESSION: 1. No pulmonary emboli identified. 2. No acute intrathoracic findings. Electronically signed by: Chema Garcia M.D. 02/09/2017 12:25 PM Dictated Date/Time: 02/09/2017 12:17 PM
[2017-02-09] MEDS ORDERED: SUCRALFATE 1 GM TAB PO STA (13:22)
[2017-02-09] MEDS ORDERED: GI COCKTAIL PO STA (13:22)
[2017-02-09] MEDS ORDERED: FAMOTIDINE 20 MG TAB PO ONE (13:30)
[2017-02-09] MEDS ORDERED: LIDOCAINE HCL 2% VISC SOLN 20 ML UDC ONE (13:42)
[2017-02-09] MEDS ORDERED: MAGNESIUM HYDROXIDE SUSP 30 ML UDC ONE (13:43)
[2017-02-09] MEDS ORDERED: ALUMINUM/MAGNESIUM SUSP 30 ML UDC ONE (13:44)
[2017-02-09] MEDS ORDERED: ONDA4TAB10 SL (13:48)
[2017-02-09] MEDS ORDERED: OXYC-57 PO (13:48)
[2017-02-09 14:06] VITALS: BP 131/89; PULSE 70; O2SAT 95
[2017-02-17] MEDS ORDERED: PRT40 PO (12:02)
[2017-02-17] MEDS ORDERED: SUCR1TAB PO (12:02)
== END 2017-02-09 14:07 | disposition home or self-care (01) ==
LOC: C.EDB 10:53 → C.EDC 14:07
DX: K52.9 Noninfective gastroenteritis and colitis, unspecified (principal); Z87.820 Personal history of traumatic brain injury; Z90.49 Acquired absence of other specified parts of digestive tract; Z98.890 Other specified postprocedural states; F90.9 Attention-deficit hyperactivity disorder, unspecified type; F41.9 Anxiety disorder, unspecified; F17.210 Nicotine dependence, cigarettes, uncomplicated; Z79.899 Other long term (current) drug therapy

== ENCOUNTER 2017-02-15 14:57 | Inpatient (IN) | payer BC ==
[~2017-02-15] VITALS: Ht 177.8 cm; Wt 94.9 kg
[~2017-02-15 14:57] MED LIST changes: +ONDA4TAB10 SL
[2017-02-15] MEDS ORDERED: CYCL10TA6 PO (15:31)
[2017-02-15] MEDS ORDERED: ONDA4TAB10 SL (15:31)
[2017-02-15] MEDS ORDERED: OXYC-57 PO (15:31)
[2017-02-15] MEDS ORDERED: ONDANSETRON INJ 2 MG/ML 2 ML VIAL IV STA (15:44)
[2017-02-15] MEDS ORDERED: SODIUM CHLORIDE 0.9% 1000ML 1,000 ML IV STA (15:44)
[2017-02-15] MEDS ORDERED: MoRPHine SULFATE 10 MG/ML CARP/VIAL IV STA (15:44)
[2017-02-15] MEDS ORDERED: OPTIRAY 320 IV PRN (16:00)
[2017-02-15 16:09] LABS: BASO % 0.1 %; BASO ABS # 0.01 K/uL (0-0.2); COMPLETE YES; HEMATOCRIT 48.7 % (42-52); IG% 0.2 %; LYMPH % 7.8 %; LYMPH ABS # 0.75 K/uL (1.2-3.4); MEAN CELL VOLUME 81.4 fL (80-100); MEAN CORPUSCULAR HEMOGLOBIN 29.9 pg (25-34); MEAN CORPUSCULAR HGB CONC 36.8 g/dl (32-36); MEAN PLATELET VOLUME 9.6 fL (7.4-10.4); MONO % 9.3 %; NEUT % 82.6 %; PLATELET COUNT 310 K/uL (130-400); RED BLOOD COUNT 5.98 M/uL (4.7-6.1)
[2017-02-15 16:42] LABS: CALCIUM 9.6 mg/dl (8.5-10.1); CREATININE 0.9 mg/dl (0.60-1.40)
[2017-02-15] MEDS ORDERED: METRONIDAZOLE 500MG / 100ML NSS IV STA (17:07)
[2017-02-15] MEDS ORDERED: CIPROFLOXACIN 400MG / 200ML D5W IV STA (17:07)
[2017-02-15] MEDS ORDERED: PANTOprazole INJ 80 MG in DEXTROSE 5% 100ML IV SCH (17:30)
[2017-02-15] MEDS ORDERED: PANTOprazole INJ 40 MG in DEXTROSE 5% 100ML IV SCH (17:45)
[2017-02-15] MEDS ORDERED: ACET500T57 PO (18:15)
[2017-02-15] MEDS ORDERED: ONDANSETRON INJ 2 MG/ML 2 ML VIAL IV PRN (18:15)
--- NOTE | 2017-02-15 18:54 | History and Physical ---
History & Physical Date & Time of Service: Feb 15, 2017 at 18:19 Chief Complaint: Pancreatitis/Ulcer - Sent By [place] Pcp Primary Care Physician: Ny Miranda D.O. History of Present Illness Source: patient, parent (mother at bedside), clinic records This is a 26 year old male with PMH of TBI with residual left sided weakness, ADHD, anxiety, hx lap cholecystectomy, who presents to the ED with epigastric pain. He started having thoracic back pain a few weeks ago. No injury. Was seen in ER on February 09 for thoracic back pain, chest pain, and vomiting. Had unremarkable EKG, CXR, CTA chest, and labs. Pain was thought to have musculoskeletal pain and gastroenteritis. He was sent home with Percocet and Zofran. Patient continued with the pain and was seen at clinic and started on muscle relaxer and Tylenol. Pt's mother states patient had 33 tabs of Tylenol since 3 days ago. He was taking NSAIDs last weekend only. Pt states pain has extended to epigastric area. Pain is not related to eating. Morphine helped but he states it is wearing off. Patient was vomiting last Sunday and 2 nights ago and thinks he may have seen a teaspoon of red material in the emesis. He did not note any coffee ground emesis, hematochezia, or melena. Has not been eating food for past 2 days, but is drinking liquids. Has had cold sweats. Pt was seen by Dr. Worthington in clinic today and was sent to ER to r/o pancreatitis or perforated/ bleeding ulcer. Denies chest pain, SOB, diarrhea, dysuria, frequency. Patient had cholecystectomy in Aug 2016 and ERCP in [place] in Sep 2016 at which time biliary stones were removed as per patient's mother. Patient denies history of PUD or pancreatitis. Past Medical/Surgical History Medical Problems: (1) ADD (attention deficit disorder) Status: Chronic (2) Anxiety Status: Chronic (3) Tobacco abuse Status: Chronic (4) Traumatic brain injury Permanent Comment: @ 9 months old Status: Chronic Surgical Problems: (1) H/O craniotomy Permanent Comment: as child Status: Resolved (2) History of cholecystectomy Permanent Comment: 08/27/2016 Status: Resolved Family History FH: CAD (coronary artery disease) FATHER Hypertension FATHER Social History Smoking Status: Current Every Day Smoker (3/4 ppd) Alcohol Use: none (no recent etoh use) Drug Use: none Marital Status: single Housing status: lives with family (with parents) Occupational Status: student Allergies Coded Allergies: Amoxicillin (Verified Allergy, Mild, RASH, 02/15/17) Home Medications Scheduled Bupropion (Wellbutrin-Xl), 300 MG PO DAILY Fluoxetine (Prozac), 20 MG PO DAILY Scheduled PRN Acetaminophen (Acetaminophen), 1-2 TAB PO Q8 PRN for Pain Cyclobenzaprine Hcl (Flexeril), 10 MG PO BID PRN for Muscle Spasms Ondasetron Odt (Zofran Odt), 4 MG SL Q6H PRN for Nausea or Vomiting Oxycodone/Acetaminophen 5MG/325MG (Percocet 5MG/325MG), 1-2 TABLETS PO Q4H PRN for Pain Review of Systems Ten systems reviewed and negative except as noted in HPI. Physical Exam Vital Signs Date Time Temp Pulse Resp B/P (MAP) Pulse Ox O2 Delivery O2 Flow Rate FiO2 02/15/17 16:13 110 02/15/17 15:02 36.8 123 18 120/72 98 Room Air General Appearance: WD/WN, no apparent distress Head: normocephalic, atraumatic Eyes: normal inspection, sclerae normal ENT: hearing grossly normal, pharynx normal Neck: supple, trachea midline Respiratory/Chest: lungs clear, normal breath sounds, no respiratory distress, no accessory muscle use Cardiovascular: no murmur, + tachycardia (regular rhythm rate 90's) Abdomen/GI: normal bowel sounds, soft, + pertinent finding (tender in LUQ. no guarding. ) Back: normal inspection, no CVA tenderness, no muscle spasm, + pertinent finding (no paraspinal muscle tenderness in thoracic spine ) Extremities/Musculoskelatal: no calf tenderness, no pedal edema Neurologic/Psych: alert, normal mood/affect, oriented x 3 Skin: normal color, warm/dry Diagnostics Laboratory Results Results Past 24 Hours Test 02/15/17 16:01 Range/Units White Blood Count 9.60 4.8-10.8 K/uL Red Blood Count 5.98 4.7-6.1 M/uL Hemoglobin 17.9 14.0-18.0 g/dL Hematocrit 48.7 42-52 % Mean Corpuscular Volume 81.4 80-100 fL Mean Corpuscular Hemoglobin 29.9 25-34 pg Mean Corpuscular Hemoglobin Concent 36.8 32-36 g/dl Platelet Count 310 130-400 K/uL Mean Platelet Volume 9.6 7.4-10.4 fL Neutrophils (%) (Auto) 82.6 % Lymphocytes (%) (Auto) 7.8 % Monocytes (%) (Auto) 9.3 % Eosinophils (%) (Auto) 0.0 % Basophils (%) (Auto) 0.1 % Neutrophils # (Auto) 7.93 1.4-6.5 K/uL Lymphocytes # (Auto) 0.75 1.2-3.4 K/uL Monocytes # (Auto) 0.89 0.11-0.59 K/uL Eosinophils # (Auto) 0.00 0-0.5 K/uL Basophils # (Auto) 0.01 0-0.2 K/uL RDW Standard Deviation 40.4 36.4-46.3 fL RDW Coefficient of Variation 13.7 11.5-14.5 % Immature Granulocyte % (Auto) 0.2 % Immature Granulocyte # (Auto) 0.02 0.00-0.02 K/uL Sodium Level 135 136-145 mmol/L Potassium Level 4.0 3.5-5.1 mmol/L Chloride Level 102 98-107 mmol/L Carbon Dioxide Level 23 21-32 mmol/L Anion Gap 10.0 3-11 mmol/L Blood Urea Nitrogen 16 7-18 mg/dl Creatinine 0.90 0.60-1.40 mg/dl Est Creatinine Clear Calc Drug Dose 141.7 ml/min Estimated GFR () 136.1 Estimated GFR (Non- 117.5 BUN/Creatinine Ratio 18.0 10-20 Random Glucose 131 70-99 mg/dl Calcium Level 9.6 8.5-10.1 mg/dl Total Bilirubin 6.5 0.2-1 mg/dl Direct Bilirubin 4.7 0-0.2 mg/dl Aspartate Amino Transf (AST/SGOT) 1448 15-37 U/L Alanine Aminotransferase (ALT/SGPT) 1049 12-78 U/L Alkaline Phosphatase 125 45-117 U/L Total Protein 8.9 6.4-8.2 gm/dl Albumin 4.7 3.4-5.0 gm/dl Lipase 122 73-393 U/L Acetaminophen Level < 2 10-30 ug/ml Impression Assessment and Plan EPIGASTRIC ABDOMINAL PAIN Unclear etiology Differential includes gastritis, gastric ulcer, biliary pathology, pancreatitis less likely as lipase was normal Check CT a/p ER provider discussed with Dr. Mcneil- recommended PPI drip, Cipro/ Flagyl, and ERCP in AM Clear liquid diet then NPO after midnight IV fluids Pain control with low dose IV morphine ELEVATED LFT'S May have biliary obstruction Tylenol level < 2 Recheck CMP in am Plan for ERCP tomorrow am QUESTIONABLE HEMATEMESIS Reported of ? hematemesis 2 nights ago No active bleeding Hg is stable; mild sinus tachycardia; BP stable Type and hold 2 units Recheck H/H at midnight PPI drip as per GI recommendation ANXIETY Continue Prozac and Wellbutrin DVT PROPHYLAXIS SCD's due to questionable hematemesis DISPOSITION Admit to telemetry Follows with Dr. Miranda for primary care Patient seen in collaboration with Dr. Still. Please see his addendum. Attending Note: Patient is a 26 yr old male presents for evaluation of epigastric/LUQ abd pain and was found have have transaminitis on labs. CT abd pending. Denies fever, diarrhea, blood in stools. Had H/O cholecystectomy and ERCP for biliary stones early this year. Has been requiring Tylenol and Percocet frequently to control pain at home. Denies any relation to food intake. Lipase levels are wnl. Reports NSAIDs use over weekend for pain control. Physical Exam: Vitals signs as noted above General Appearance:Moderately built and nourished, no apparent distress Head: normocephalic, Atraumatic Eyes: normal inspection, EOMI, PERRLA, Anicteric Neck: supple, no JVD, Trachea midline Respiratory/Chest: Normal Vesicular breath sounds, CTA, No accessory muscle use Cardiovascular: S1, S2, NSR, No murmur Abdomen/GI:Soft, Non tender, Bowel sounds present, No guarding/rigidity/ organomegaly Extremities/Musculoskelatal:normal inspection, no calf tenderness, cyanosis, clubbing, edema Neurologic/Psych:AAOX3, grossly no focal neurological deficits Skin:normal color,warm Assessment and Plan: Abdominal pain:Unclear etiology : CT abd pending ? Hematemesis Plan: Appreciate GI input Continue empiric Abx Continue PPI Pain control IVF NPO after midnight for possible ERCP in AM Monitor Mando I personally reviewed the record. Patient is interviewed and examined at bedside. Patient's care is coordinated with Leisa Sullivan PA-C. Please refer to the documentation above for details of patient's presentation and for discussion of other issues. VTE Prophylaxis VTE Risk Assessment Done? Y/N: Yes Risk Level: Low
[2017-02-15] MEDS: MoRPHine SULFATE 2 MG/ML CARP IV PRN ×2 (19:20→23:25)
--- NOTE | 2017-02-15 19:56 | DIAGNOSTIC IMAGING REPORT ---
CT SCAN OF THE ABDOMEN AND PELVIS WITH IV CONTRAST CLINICAL HISTORY: Epigastric abdominal pain. COMPARISON STUDY: Abdominal CT dated 08/26/2016. TECHNIQUE: Following the IV administration of 116 cc of Optiray 320, CT scan of the abdomen and pelvis is performed from the lung bases to the proximal femora. Images are reviewed in the axial, sagittal, and coronal planes. IV contrast was administered without complication. Automated dose control exposure was utilized. The examination is degraded by streak artifact from the left arm which could not be elevated above the abdomen. CT DOSE: 755.75 mGy.cm FINDINGS: Lung bases: The heart is normal in size and without pericardial effusion. The lung bases are clear noting minimal dependent hypoventilatory change. Gynecomastia is noted. Liver: The contrast-enhanced liver is top normal in size measuring 18 cm in length. The liver demonstrates diminished attenuation consistent with hepatic steatosis. More focal fatty infiltration is seen adjacent to falciform ligament. There is mild central intrahepatic biliary ductal dilatation. The hepatic veins and portal veins are patent. Gallbladder: Surgically absent noting clips in the gallbladder fossa. The common bile duct the cystic duct remnant are distended, measuring up to 11 mm. The wall of the common bile duct and cystic duct is thickened and hyperemic and there is surrounding inflammatory stranding. Trace fluid is seen in the chantel hepatis. Spleen: Normal in size and attenuation. Pancreas: Unremarkable. Adrenal glands: Unremarkable. Kidneys: The contrast enhanced kidneys are normal in size and without hydronephrosis. The kidneys enhance symmetrically. There is a 2.6 cm cyst in the right lower pole. Abdominal vasculature: The abdominal aorta is normal in course and caliber. Bowel: The small bowel and colon are normal in course and caliber. The appendix is well-visualized and normal. Peritoneum: There is no intraperitoneal free air or abdominal ascites. There is a small fat-containing umbilical hernia. Lymphadenopathy: None. Pelvic viscera: The bladder, prostate, and seminal vesicles are normal as visualized. Skeletal structures: No lytic or blastic lesions are seen. IMPRESSION: 1. The common bile duct and the cystic duct remnant are distended, and the wall of the common bile duct and cystic duct is thickened and hyperemic. There is surrounding inflammatory stranding and trace fluid in the chantel hepatis. Correlate clinically for evidence of infection/cholangitis. A retained gallstone is not identified by CT but not excluded. GI consultation is recommended. 2. There is mild intrahepatic biliary ductal dilatation. The intrahepatic bile ducts are otherwise normal in appearance. 3. Mild hepatic steatosis. Electronically signed by: Arturo Coffey M.D. 02/15/2017 7:55 PM Dictated Date/Time: 02/15/2017 7:46 PM
[2017-02-15] MEDS: SODIUM CHLORIDE 0.9% 1000ML 1,000 ML IV SCH (20:18)
[2017-02-15 20:22] VITALS: BP 135/112; PULSE 85; TEMP 36.8; O2SAT 97; Ht 177.8 cm; Wt 94.9 kg
[2017-02-15 21:33] LABS: URINE APPEARANCE CLEAR (CLEAR); URINE COLOR DK YELLOW; URINE NITRITE NEG (NEG); URINE PH 5.5 (4.5-7.5); URINE SPECIFIC GRAVITY > 1.045 (1.000-1.030); UROBILINOGEN NEG (NEG)
[2017-02-15 21:44] LABS: MANUAL MICROSCOPIC REQUIRED? NO; REVIEW REQ? NO; URINE BILIRUBIN NEG (NEG)
[2017-02-15] MEDS: PANTOprazole INJ 40 MG in DEXTROSE 5% 100ML IV SCH (22:33)
--- NOTE | 2017-02-15 23:47 | EMERGENCY ROOM VISIT NOTE ---
ED Visit Note First contact with patient: 15:23 Chief Complaint: Abdominal pain. History of Present Illness: Mr. Ware is a 26 year-old white male who ambulates into the ED accompanied by his father complaining of epigastric abdominal and thoracic back pain. Historically patient and father reports he is status post posttraumatic brain injury and status post cholecystectomy Patient reports on August 27 of this year he had acute cholecystitis and had a cholecystectomy. Since that time he has had 2 ERCPs which is shown retained stones. Patient was seen in the ED 3 days ago for thoracic back pain that became chest pain. At that time he was having bloody vomitus. After evaluation including laboratory testing and CTA of the chest and was felt that his symptoms were related to possible gastroenteritis. He was discharged to home with close follow-up to his family doctor. At that time they felt his symptoms were most likely musculoskeletal and he was placed on Flexeril and encouraged to use acetaminophen as needed for pain. Patient was referred to the ED by his PCP for worsening pain and concerns for pancreatitis versus peptic ulcer disease. Patient reports since being seen in the ED and his family doctor he continues to have severe epigastric pain. He describes this as a stabbing sensation. He rates his discomfort 8/10. The pain is radiating through the abdomen and into the thoracic back. His pain worsens with palpation, flexion of the chest and deep inspiration. He has not identified any alleviating factors related to the pain. He has been using his prescribed Flexeril and Percocet without relief of his discomfort. Associated with his pain he reports he has been having chills and intermittent sweats but denies aldair fevers, nausea and vomiting. Additionally patient was found to have extreme levels of his liver function tests. It was questioned whether he was taking too much acetaminophen so his father went home and counted his son's acetaminophen tablets from a new container and it was found that in the course of the last 4 days patient had been taken 33 extra strength acetaminophen tablets. Patient denies skin eruptions, skin color changes, upper respiratory tract symptoms, shortness of breath, chest pain, diarrhea, constipation, rectal bleeding, black/tarry stools, urinary symptoms, hematuria, vaginal bleeding, vaginal discharge, back/flank pain. Review of Systems: As noted above in history of present illness. All body systems were reviewed and found to be negative as noted above. Past Medical History: As noted above and TVA with left-sided weakness, attention deficit disorder, anxiety and status post craniotomy. Current Medications: Acetaminophen, Flexeril, Percocet, Zofran, Prozac, Wellbutrin. Allergies to Medications: Amoxicillin. Social History: Patient is currently employed; he lives with his family and feels safe in his home environment; he admits to tobacco use but denies any recent alcohol use. Physical Examination: Vital Signs: Date Time Temp Pulse Resp B/P (MAP) Pulse Ox O2 Delivery O2 Flow Rate FiO2 02/15/17 16:13 110 02/15/17 15:02 36.8 123 18 120/72 98 Room Air GENERAL: 26-year-old male in moderate distress due to pain, nontoxic-appearing, afebrile and hemodynamically stable. NEUROLOGICAL: Awake, alert and oriented to person, place and time. Answering questions appropriately and following commands. Normal gait. Good hand eye coordination. SKIN: Warm, dry and pink. No soft tissue eruptions or trauma noted. HEENT: Atraumatic and normocephalic. PERRL. Sclera white and conjunctiva pink. Oral cavity moist and pink. Pharynx is nonerythematous or edematous. Speech normal. No lymphadenopathy. Trachea midline. No jugular venous distention. BACK: No tenderness over the bony spine. Moderate tenderness in the midthoracic area within the paraspinous muscles. No palpable spasm, swelling, erythema or edema. No CVA tenderness. THORAX: Lungs sounds are clear to auscultation and equal bilaterally with symmetrical chest wall. No wheezing, rales or rhonchi. No crepitus, tenderness , subcutaneous air or deformities noted. HEART: Regular rate and rhythm. No gallops, rubs or murmurs are appreciated. ABDOMEN: Abdomen is flat and soft with moderate tenderness in the epigastrium. Decreased bowel sounds in all quadrants. Mild guarding but no rigidity or organomegaly. EXTREMITIES: Moves all extremities well on command and with purpose. All distal neurovascular statuses are intact and equal bilaterally. ED Course: Patient is assessed as noted above. Patient's medication list was reviewed. Laboratory Testing: Test 02/15/17 16:01 Range/Units White Blood Count 9.60 4.8-10.8 K/uL Red Blood Count 5.98 4.7-6.1 M/uL Hemoglobin 17.9 14.0-18.0 g/dL Hematocrit 48.7 42-52 % Mean Corpuscular Volume 81.4 80-100 fL Mean Corpuscular Hemoglobin 29.9 25-34 pg Mean Corpuscular Hemoglobin Concent 36.8 32-36 g/dl Platelet Count 310 130-400 K/uL Mean Platelet Volume 9.6 7.4-10.4 fL Neutrophils (%) (Auto) 82.6 % Lymphocytes (%) (Auto) 7.8 % Monocytes (%) (Auto) 9.3 % Eosinophils (%) (Auto) 0.0 % Basophils (%) (Auto) 0.1 % Neutrophils # (Auto) 7.93 1.4-6.5 K/uL Lymphocytes # (Auto) 0.75 1.2-3.4 K/uL Monocytes # (Auto) 0.89 0.11-0.59 K/uL Eosinophils # (Auto) 0.00 0-0.5 K/uL Basophils # (Auto) 0.01 0-0.2 K/uL RDW Standard Deviation 40.4 36.4-46.3 fL RDW Coefficient of Variation 13.7 11.5-14.5 % Immature Granulocyte % (Auto) 0.2 % Immature Granulocyte # (Auto) 0.02 0.00-0.02 K/uL Sodium Level 135 136-145 mmol/L Potassium Level 4.0 3.5-5.1 mmol/L Chloride Level 102 98-107 mmol/L Carbon Dioxide Level 23 21-32 mmol/L Anion Gap 10.0 3-11 mmol/L Blood Urea Nitrogen 16 7-18 mg/dl Creatinine 0.90 0.60-1.40 mg/dl Est Creatinine Clear Calc Drug Dose 141.7 ml/min Estimated GFR () 136.1 Estimated GFR (Non- 117.5 BUN/Creatinine Ratio 18.0 10-20 Random Glucose 131 70-99 mg/dl Calcium Level 9.6 8.5-10.1 mg/dl Total Bilirubin 6.5 0.2-1 mg/dl Direct Bilirubin 4.7 0-0.2 mg/dl Aspartate Amino Transf (AST/SGOT) 1448 15-37 U/L Alanine Aminotransferase (ALT/SGPT) 1049 12-78 U/L Alkaline Phosphatase 125 45-117 U/L Total Protein 8.9 6.4-8.2 gm/dl Albumin 4.7 3.4-5.0 gm/dl Lipase 122 73-393 U/L Acetaminophen Level < 2 10-30 ug/ml Contrast abdominal/pelvic CT: Was reviewed by myself and read by the radiologist showing common bile duct and cystic duct reminiscent are distended and the wall of the common bile duct and cystic duct arthritic and and hyperemic. There is surrounding inflammatory stranding and trace fluid in the chantel hepatis. Mild intrahepatic biliary duct dilatation. Mild hepatic steatosis. Patient was hydrated with normal saline and patient received 6 mg of morphine IV for pain and 4 mg of Zofran IV for nausea. Patient was reassessed multiple times during his stay in the emergency department. Patient's case was reviewed with Dr. Mcgrath; we agreed on diagnostic approach, treatment, disposition and plan. Patient's case was consulted with Dr. Mcneil, gastroenterology; he recommended IV Protonix, antibiotics of Cipro and Flagyl, hospital stay with ERCP for the morning. Patient's case was consulted with case management and Ms. Levy, PAC [facility], for medical observation/admission. Patient and family members were educated about today's findings. Clinical Impression: Acute hepatitis. Probable retained gallstone. Decision-Making: Initially my differential diagnosis I considered retained gallstone, postsurgical infection, pancreatitis, musculoskeletal disorder, pneumonia, bowel obstruction and other causes. Disposition and Plan: Patient to be brought in the hospital for observation/ admission by the [facility]; please see their notes and orders for final disposition and plan.
[2017-02-16] VITALS (10 sets, daily range): BP systolic 108–150; BP diastolic 68–108; PULSE 82–105; TEMP 36.6–37; O2SAT 92–97
[2017-02-16] MEDS: METRONIDAZOLE / NSS 500 MG in PREMIXED NSS 100 ML IV SCH ×4 (00:06→23:33)
[2017-02-16 00:37] LABS: HEMATOCRIT 45.2 % (42-52)
[2017-02-16] MEDS: MoRPHine SULFATE 2 MG/ML CARP IV PRN ×2 (03:50→07:57)
[2017-02-16] MEDS: PANTOprazole INJ 40 MG in DEXTROSE 5% 100ML IV SCH ×4 (03:52→20:56)
[2017-02-16] MEDS: SODIUM CHLORIDE 0.9% 1000ML 1,000 ML IV SCH ×3 (04:00→22:38)
[2017-02-16] MEDS: CIPROFLOXACIN / D5W 400 MG in PREMIXED IN D5W 200 ML IV SCH ×2 (06:28→18:24)
[2017-02-16 07:01] LABS: HEMATOCRIT 46.7 % (42-52); MEAN CELL VOLUME 82.9 fL (80-100); MEAN CORPUSCULAR HGB CONC 34.9 g/dl (32-36); MEAN PLATELET VOLUME 9.8 fL (7.4-10.4); PLATELET COUNT 283 K/uL (130-400); RED BLOOD COUNT 5.63 M/uL (4.7-6.1); WHITE BLOOD COUNT 7.97 K/uL (4.8-10.8)
[2017-02-16 07:43] LABS: ALB/GLOB RATIO 1.1 (0.9-2); BUN/CREATININE RATIO 7.6 (10-20); CALCIUM 9.1 mg/dl (8.5-10.1); CREATININE 0.82 mg/dl (0.60-1.40); POTASSIUM 3.8 mmol/L (3.5-5.1)
[2017-02-16] MEDS: FLUOXETINE HCL 20 MG CAP PO SCH (08:00)
[2017-02-16] MEDS: BuPROPion XL 300 MG TABCR PO SCH (08:00)
--- NOTE | 2017-02-16 08:10 | Gastrointestinal Consultation ---
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 GI was consulted for ongoing management. Pt was seen and evaluate this AM. His mother is at bedside. He tells me over the past week he has had upper abdominal pain radiating to his back. This would wax and wane and he believed this was MSK in nature. He presented to a ED for evaluation, he tells me they obtained labs and imaging and these were all unremarkable. He was provided with narcotics and sent home. His pain persisted and eventually become more constant. He was seen by his PCP who suggested ER evaluation. CBC unremarkable. TB 6.5, DB 4.7, AST 1448, ALT 1049, ALK 125. He has taken 30 tablets of tylenol since Sunday for abdominal pain. CT abdomen 02/15/17: The common bile duct and the cystic duct remnant are distended, and the wall of the common bile duct and cystic duct is thickened and hyperemic. There is surrounding inflammatory stranding and trace fluid in the chantel hepatis. Correlate clinically for evidence of infection/cholangitis. A retained gallstone is not identified by CT but not excluded. GI consultation is recommended. There is mild intrahepatic biliary ductal dilatation. The intrahepatic bile ducts are otherwise normal in appearance. Mild hepatic steatosis. Past Medical/Surgical History Medical Problems: (1) Cholecystitis Status: Acute (2) Gastroenteritis Status: Acute Past Medical History: ADD, anxiety, tobacco abuse, TBI @ 9 months, gallstones, choledocholithiasis Past Surgical History: H/O craniotomy, History of cholecystectomy, ERCP x 2 Family History FH: CAD (coronary artery disease) FATHER Hypertension FATHER Social History Smoking Status: Current Every Day Smoker Alcohol Use: none Drug Use: none Marital Status: single Occupation Status: student Allergies Coded Allergies: Amoxicillin (Verified Allergy, Mild, RASH, 02/15/17) Current Medications Home Meds and Scripts Medications Dose Route/Sig Max Daily Dose Days Date Category Acetaminophen 500 Mg Tab 1-2 Tab PO Q8 PRN 30 02/15/17 Reported Flexeril (Cyclobenzaprine Hcl) 10 Mg Tab 10 Mg PO BID PRN 02/15/17 Reported Percocet 5MG/325MG (Oxycodone/Acetaminophen) Tab 1-2 Tablets PO Q4H PRN 02/15/17 Reported Zofran Odt (Ondansetron HCl) 4 Mg Tab 4 Mg SL Q6H PRN 02/15/17 Reported Prozac (Fluoxetine HCl) 20 Mg Cap 20 Mg PO DAILY 08/26/16 Reported Wellbutrin-Xl (Bupropion HCl) 300 Mg Tabcr 300 Mg PO DAILY 08/26/16 Reported Review of Systems Constitutional: No fever, No chills Respiratory: No cough, No shortness of breath Cardiac: No chest pain Abdomen: + pain, + nausea, + constipation, No vomiting, No diarrhea Skin: No itch, No bleeding Physical Exam Date Time Temp Pulse Resp B/P (MAP) Pulse Ox O2 Delivery O2 Flow Rate FiO2 02/16/17 07:15 36.7 94 18 150/108 (122) 97 Room Air 145/99 (114) 02/16/17 04:13 Room Air 02/16/17 04:00 36.8 87 16 143/99 (114) 96 02/16/17 00:15 Room Air 02/16/17 00:00 36.9 105 18 145/100 (115) 95 02/15/17 20:22 36.8 85 16 135/112 97 Room Air 02/15/17 19:12 105 16 135/112 97 Room Air 02/15/17 18:33 99 18 137/92 96 Room Air 02/15/17 16:13 110 02/15/17 15:02 36.8 123 18 120/72 98 Room Air General Appearance: + mild distress (patient is upright in bed holding his stomach) Eyes: PERRL ENT: hearing grossly normal Neck: supple Respiratory/Chest: lungs clear, normal breath sounds Cardiovascular: regular rate, rhythm, no murmur Abdomen: normal bowel sounds, soft, no organomegaly, no pulsatile mass, + tenderness (bilateral upper quadrant pain) Neurologic/Psych: alert, normal mood/affect, oriented x 3 Skin: normal color, no jaundice, warm/dry, no rash Laboratory Results Last 24 Hours Test 02/15/17 16:01 02/15/17 21:19 02/16/17 00:30 02/16/17 06:23 White Blood Count 9.60 K/uL 7.97 K/uL Red Blood Count 5.98 M/uL 5.63 M/uL Hemoglobin 17.9 g/dL 16.3 g/dL 16.3 g/dL Hematocrit 48.7 % 45.2 % 46.7 % Mean Corpuscular Volume 81.4 fL 82.9 fL Mean Corpuscular Hemoglobin 29.9 pg 29.0 pg Mean Corpuscular Hemoglobin Concent 36.8 g/dl 34.9 g/dl Platelet Count 310 K/uL 283 K/uL Mean Platelet Volume 9.6 fL 9.8 fL Neutrophils (%) (Auto) 82.6 % Lymphocytes (%) (Auto) 7.8 % Monocytes (%) (Auto) 9.3 % Eosinophils (%) (Auto) 0.0 % Basophils (%) (Auto) 0.1 % Neutrophils # (Auto) 7.93 K/uL Lymphocytes # (Auto) 0.75 K/uL Monocytes # (Auto) 0.89 K/uL Eosinophils # (Auto) 0.00 K/uL Basophils # (Auto) 0.01 K/uL RDW Standard Deviation 40.4 fL 42.2 fL RDW Coefficient of Variation 13.7 % 13.9 % Immature Granulocyte % (Auto) 0.2 % Immature Granulocyte # (Auto) 0.02 K/uL Sodium Level 135 mmol/L 135 mmol/L Potassium Level 4.0 mmol/L 3.8 mmol/L Chloride Level 102 mmol/L 99 mmol/L Carbon Dioxide Level 23 mmol/L 25 mmol/L Anion Gap 10.0 mmol/L 11.0 mmol/L Blood Urea Nitrogen 16 mg/dl 6 mg/dl Creatinine 0.90 mg/dl 0.82 mg/dl Est Creatinine Clear Calc Drug Dose 141.7 ml/min 157.0 ml/min Estimated GFR () 136.1 141.5 Estimated GFR (Non- 117.5 122.0 BUN/Creatinine Ratio 18.0 7.6 Random Glucose 131 mg/dl 112 mg/dl Calcium Level 9.6 mg/dl 9.1 mg/dl Total Bilirubin 6.5 mg/dl 5.9 mg/dl Direct Bilirubin 4.7 mg/dl Aspartate Amino Transf (AST/SGOT) 1448 U/L 686 U/L Alanine Aminotransferase (ALT/SGPT) 1049 U/L 962 U/L Alkaline Phosphatase 125 U/L 156 U/L Total Protein 8.9 gm/dl 8.1 gm/dl Albumin 4.7 gm/dl 4.2 gm/dl Lipase 122 U/L Acetaminophen Level < 2 ug/ml Urine Color DK YELLOW Urine Appearance CLEAR Urine pH 5.5 Urine Specific [place] > 1.045 Urine Protein NEG Urine Glucose (UA) NEG Urine Ketones 1+ Urine Occult Blood NEG Urine Nitrite NEG Urine Bilirubin NEG Urine Urobilinogen NEG Urine Leukocyte Esterase NEG Globulin 3.9 gm/dl Albumin/Globulin Ratio 1.1 Impression Patient is a 26 year old male with history of cholecystectomy in August with ERCP x 2 for stenting and stent removal in September for choledocholithiasis who presented to the ED for upper abdominal pain. CT suggestive of biliary dilation. TB 6.5, DB 4.7 AST 1448, ALT 1049, ALKP 125. Differentials include retained stone vs drug induced hepatitis. Tylenol level WNL. Plan NPO Stat MRCP ?ERCP today with Dr. Borden Avoid Tylenol PPI drip ABX coverage Analgesics PRN Antiemetics PRN Further recommendations pending results of MRCP. GI to follow. Dr. Mcneil is covering our service this weekend, please contact him with any questions. Blaire STREETER will resume coverage on Sunday. I saw and evaluated the patient. he has a history of choledocholithiasis and last had an ERCP about 4-5 months ago after his cholecystectomy. He notes having worsening RUQ and back pain over the last 1-2 weeks associated with post- prandial emesis (hematemesis last week) PE: Moderate scleral icterus Moderate ruq tenderness Impression: patient presenting with symptoms suggestive of recurrent choledocholithiasis. We will plan to go directly to ERCP today as the bilrubin is > 4. Given the prior hematemsis will proceed with EGD as well. We have consented the patient for possible EUS should there be difficulty with the biliary cannulation. We have discussed the risks (bleeding, infection, perforation, pain, pancreatitis, and failed biliary cannulation. Plan EGD / ERCP today
[2017-02-16] MEDS ORDERED: INDOMETHACIN 50 MG SUPP PR SCH (10:00)
--- NOTE | 2017-02-16 11:17 | Progress Note ---
Internal Med Progress Note Date of Service: Feb 16, 2017. Provider Documentation: SUBJECTIVE: Seen and examined at bedside. In distress secondary to abdominal pain. Denies nausea, vomiting, diarrhea. Reports generalized abdominal pain. Planned for ERCP today OBJECTIVE: Vital Signs-as noted below Physical Exam: General Appearance:Moderately built and nourished, mild distress Head: normocephalic, Atraumatic Eyes: normal inspection, EOMI, PERRL Neck: supple, Trachea midline Respiratory/Chest: Normal breath sounds, CTA Cardiovascular: S1, S2, +tachycardia, No murmur Abdomen/GI:Soft, RUQ AND LUQ tender, Bowel sounds present Extremities/Musculoskelatal:normal inspection, no edema Neurologic/Psych:AAOX3, grossly no focal neurological deficits Skin: normal color, warm Lab data as noted below. ASSESSMENT & PLAN: ABDOMINAL PAIN: Likely secondary to retained stone CT ABD: CBD and cyst duct distention Planned for ERCP today Appreciate GI input Continue PPI drip, Cipro/ Flagyl per GI recommendations NPO for now IV fluids Pain control TRANSAMINITIS Likely secondary to biliary obstruction Tylenol level < 2 Monitor liver function ERCP today SINUS TACHYCARDIA: Secondary to pain monitor ANXIETY Continue Prozac and Wellbutrin ? H/O HEMATEMESIS: No active bleeding Hb stable On PPI ggt DVT Px SCD's DISPOSITION Follows with Dr. Miranda for primary care PROCEDURES: CT abdomen: 1. The common bile duct and the cystic duct remnant are distended, and the wall of the common bile duct and cystic duct is thickened and hyperemic. There is surrounding inflammatory stranding and trace fluid in the chantel hepatis. Correlate clinically for evidence of infection/cholangitis. A retained gallstone is not identified by CT but not excluded. GI consultation is recommended. 2. There is mild intrahepatic biliary ductal dilatation. The intrahepatic bile ducts are otherwise normal in appearance. 3. Mild hepatic steatosis. Vital Signs: Date Time Temp Pulse Resp B/P (MAP) Pulse Ox O2 Delivery O2 Flow Rate FiO2 02/16/17 08:00 97 Room Air 02/16/17 07:15 36.7 94 18 150/108 (122) 97 Room Air 145/99 (114) 02/16/17 04:13 Room Air 02/16/17 04:00 36.8 87 16 143/99 (114) 96 02/16/17 00:15 Room Air 02/16/17 00:00 36.9 105 18 145/100 (115) 95 02/15/17 20:22 36.8 85 16 135/112 97 Room Air 02/15/17 19:12 105 16 135/112 97 Room Air 02/15/17 18:33 99 18 137/92 96 Room Air 02/15/17 16:13 110 02/15/17 15:02 36.8 123 18 120/72 98 Room Air Lab Results: Results Past 24 Hours Test 02/15/17 16:01 02/15/17 21:19 02/16/17 00:30 02/16/17 06:23 Range/Units White Blood Count 9.60 7.97 4.8-10.8 K/uL Red Blood Count 5.98 5.63 4.7-6.1 M/uL Hemoglobin 17.9 16.3 16.3 14.0-18.0 g/dL Hematocrit 48.7 45.2 46.7 42-52 % Mean Corpuscular Volume 81.4 82.9 80-100 fL Mean Corpuscular Hemoglobin 29.9 29.0 25-34 pg Mean Corpuscular Hemoglobin Concent 36.8 34.9 32-36 g/dl Platelet Count 310 283 130-400 K/uL Mean Platelet Volume 9.6 9.8 7.4-10.4 fL Neutrophils (%) (Auto) 82.6 % Lymphocytes (%) (Auto) 7.8 % Monocytes (%) (Auto) 9.3 % Eosinophils (%) (Auto) 0.0 % Basophils (%) (Auto) 0.1 % Neutrophils # (Auto) 7.93 1.4-6.5 K/uL Lymphocytes # (Auto) 0.75 1.2-3.4 K/uL Monocytes # (Auto) 0.89 0.11-0.59 K/uL Eosinophils # (Auto) 0.00 0-0.5 K/uL Basophils # (Auto) 0.01 0-0.2 K/uL RDW Standard Deviation 40.4 42.2 36.4-46.3 fL RDW Coefficient of Variation 13.7 13.9 11.5-14.5 % Immature Granulocyte % (Auto) 0.2 % Immature Granulocyte # (Auto) 0.02 0.00-0.02 K/uL Sodium Level 135 135 136-145 mmol/L Potassium Level 4.0 3.8 3.5-5.1 mmol/L Chloride Level 102 99 98-107 mmol/L Carbon Dioxide Level 23 25 21-32 mmol/L Anion Gap 10.0 11.0 3-11 mmol/L Blood Urea Nitrogen 16 6 7-18 mg/dl Creatinine 0.90 0.82 0.60-1.40 mg/dl Est Creatinine Clear Calc Drug Dose 141.7 157.0 ml/min Estimated GFR () 136.1 141.5 Estimated GFR (Non- 117.5 122.0 BUN/Creatinine Ratio 18.0 7.6 10-20 Random Glucose 131 112 70-99 mg/dl Calcium Level 9.6 9.1 8.5-10.1 mg/dl Total Bilirubin 6.5 5.9 0.2-1 mg/dl Direct Bilirubin 4.7 0-0.2 mg/dl Aspartate Amino Transf (AST/SGOT) 1448 686 15-37 U/L Alanine Aminotransferase (ALT/SGPT) 1049 962 12-78 U/L Alkaline Phosphatase 125 156 45-117 U/L Total Protein 8.9 8.1 6.4-8.2 gm/dl Albumin 4.7 4.2 3.4-5.0 gm/dl Lipase 122 73-393 U/L Acetaminophen Level < 2 10-30 ug/ml Urine Color DK YELLOW Urine Appearance CLEAR CLEAR Urine pH 5.5 4.5-7.5 Urine Specific [place] > 1.045 1.000-1.030 Urine Protein NEG NEG Urine Glucose (UA) NEG NEG Urine Ketones 1+ NEG Urine Occult Blood NEG NEG Urine Nitrite NEG NEG Urine Bilirubin NEG NEG Urine Urobilinogen NEG NEG Urine Leukocyte Esterase NEG NEG Globulin 3.9 2.5-4.0 gm/dl Albumin/Globulin Ratio 1.1 0.9-2
[2017-02-16] MEDS ORDERED: ONDANSETRON INJ 2 MG/ML 2 ML VIAL ONE ×2 (11:43→13:02)
[2017-02-16] MEDS ORDERED: MIDAZOLAM HCL 1 MG/ML 2ML VIAL ONE (11:43)
[2017-02-16] MEDS ORDERED: LIDOCAINE HCL 2% 2 ML VIAL (20MG/ML) ONE (11:43)
[2017-02-16] MEDS ORDERED: DEXAMETHASONE SOD INJ 4 MG/ML VIAL ONE (11:43)
[2017-02-16] MEDS ORDERED: PROPOFOL IV EMULSION 10 MG/ML 20 ML VIAL IV ONE ×2 (11:43→12:27)
[2017-02-16] MEDS ORDERED: NEOSTIGMINE METHYLSULFATE 5 MG/5 ML SYR ONE (11:43)
[2017-02-16] MEDS ORDERED: GLYCOPYRROLATE INJ 0.2 MG/ML VIAL ONE (11:43)
[2017-02-16] MEDS ORDERED: ROCURONIUM BROMIDE 10 MG/ML 5 ML VIAL ONE (11:43)
[2017-02-16] MEDS ORDERED: FENTANYL CITRATE INJ 50 MCG/1 ML 2 ML VIAL ONE ×2 (11:44→12:38)
[2017-02-16] MEDS ORDERED: ESMOLOL HCL 10 MG/ML 10 ML VIAL ONE (12:27)
[2017-02-16] MEDS ORDERED: SUCCINYLCHOLINE CHLORIDE 20 MG/ML 10 ML VIAL IV ONE (12:27)
--- NOTE | 2017-02-16 12:34 | GI REPORT ---
Procedure Date: 02/16/2017 12:23 PM Procedure: Upper GI endoscopy Indications: Epigastric abdominal pain, Hematemesis Medicines: General Anesthesia Complications: No immediate complications. Estimated blood loss: Minimal. Estimated Blood Loss: Estimated blood loss was minimal. Procedure: Pre-Anesthesia Assessment: - Prior to the procedure, a History and Physical was performed, and patient medications, allergies and sensitivities were reviewed. The patient's tolerance of previous anesthesia was reviewed. - The risks and benefits of the procedure and the sedation options and risks were discussed with the patient. All questions were answered and informed consent was obtained. - Patient identification and proposed procedure were verified prior to the procedure by the physician, the nurse and the pharmacy benefit manager. The procedure was verified in the procedure room. - Pre-procedure physical examination revealed no contraindications to sedation. - ASA Grade Assessment: II - A patient with mild systemic disease. - After reviewing the risks and benefits, the patient was deemed in satisfactory condition to undergo the procedure. - The anesthesia plan was to use general anesthesia. - Immediately prior to administration of medications, the patient was re-assessed for adequacy to receive sedatives. - The heart rate, respiratory rate, oxygen saturations, blood pressure, adequacy of pulmonary ventilation, and response to care were monitored throughout the procedure. - The physical status of the patient was re-assessed after the procedure. After obtaining informed consent, the endoscope was passed under direct vision. Throughout the procedure, the patient's blood pressure, pulse, and oxygen saturations were monitored continuously. The On-site loaner was introduced through the mouth, and advanced to the third part of duodenum. The upper GI endoscopy was accomplished without difficulty. The patient tolerated the procedure well. Findings: The examined esophagus was normal. The Z-line was regular and was found 39 cm from the incisors. Diffuse moderate inflammation characterized by congestion (edema), erythema and granularity was found in the entire examined stomach. Biopsies were taken with a cold forceps for histology. Estimated blood loss was minimal. Excessive fluid was found in the gastric fundus. Fluid aspiration for cytology was performed. The examined duodenum was normal. Impression: - Normal esophagus. - Z-line regular, 39 cm from the incisors. - Chronic gastritis. Biopsied. - Excessive gastric fluid. Fluid aspiration performed. - Normal examined duodenum. Recommendation: - Perform an ERCP today. - Await pathology results. - Use sucralfate tablets 1 gram PO BID for 6 weeks. Diogenes Borden D.O. Diogenes Borden, DO 02/16/2017 12:33:50 PM This report has been signed electronically. Note Initiated On: 02/16/2017 12:23 PM I attest to the content of the Intraoperative Record and orders documented therein, exceptions below
[2017-02-16] MEDS ORDERED: ATROPINE SULFATE 0.1 MG/ML 5ML SYR IV PRN (13:00)
[2017-02-16] MEDS ORDERED: FENTANYL CITRATE INJ 50 MCG/1 ML 2 ML VIAL IV PRN (13:00)
[2017-02-16] MEDS ORDERED: EpHEDrine SULFATE INJ 50 MG/ML AMP IV PRN (13:00)
[2017-02-16] MEDS ORDERED: PROMETHAZINE HCL INJ 6.25 MG in SODIUM CHLORIDE 0.9% 50ML 50 ML IV PRN (13:00)
[2017-02-16] MEDS ORDERED: INDOMETHACIN 50 MG SUPP PR ONE (13:00)
[2017-02-16] MEDS ORDERED: ONDANSETRON INJ 2 MG/ML 2 ML VIAL IV PRN (13:00)
--- NOTE | 2017-02-16 13:40 | GI REPORT ---
Procedure Date: 02/16/2017 12:33 PM Procedure: ERCP Indications: Abdominal pain of suspected biliary origin, Abnormal liver function test Medicines: General Anesthesia, Indocin 100 mg NE Complications: No immediate complications. Estimated blood loss: Minimal. Estimated Blood Loss: Estimated blood loss was minimal. Procedure: Pre-Anesthesia Assessment: - Prior to the procedure, a History and Physical was performed, and patient medications, allergies and sensitivities were reviewed. The patient's tolerance of previous anesthesia was reviewed. - The risks and benefits of the procedure and the sedation options and risks were discussed with the patient. All questions were answered and informed consent was obtained. - Patient identification and proposed procedure were verified prior to the procedure by the physician, the nurse and the events administrative assistant. The procedure was verified in the procedure room. - Pre-procedure physical examination revealed no contraindications to sedation. - ASA Grade Assessment: II - A patient with mild systemic disease. - After reviewing the risks and benefits, the patient was deemed in satisfactory condition to undergo the procedure. - The anesthesia plan was to use general anesthesia. - Immediately prior to administration of medications, the patient was re-assessed for adequacy to receive sedatives. - The heart rate, respiratory rate, oxygen saturations, blood pressure, adequacy of pulmonary ventilation, and response to care were monitored throughout the procedure. - The physical status of the patient was re-assessed after the procedure. After obtaining informed consent, the scope was passed under direct vision. Throughout the procedure, the patient's blood pressure, pulse, and oxygen saturations were monitored continuously. The scope was introduced through the mouth, and advanced to the duodenum and used to inject contrast into the bile duct. The ERCP was accomplished without difficulty. The patient tolerated the procedure well. Findings: A combat systems operator film of the abdomen was obtained. Surgical clips, consistent with previous cholecystectomy, were seen in the area of the right upper quadrant of the abdomen. The esophagus was successfully intubated under direct vision without detailed examination of the pharynx, larynx, and associated structures, and upper GI tract. The upper GI tract was grossly normal. A biliary sphincterotomy had been performed. The sphincterotomy appeared stenosed or narrowed. The bile duct was deeply cannulated with the short-nosed traction sphincterotome (Omni 35) and 0.035 in Acrobat guidewire. Contrast was injected. I personally interpreted the bile duct images. Contrast extended to the hepatic ducts. The biliary orifice was stenotic. This appeared benign. The middle third of the main bile duct contained multiple stones, the largest of which was 8 mm in diameter. The main bile duct was mildly dilated. The largest diameter was 8 mm. The biliary sphincterotomy was extended with a monofilament short-tip traction sphincterotome using ERBE electrocautery. The sphincterotomy oozed blood. The lower third of the main bile duct was successfully dilated with a 6 mm balloon and an 8 mm balloon dilator each held inflated for 3 minutes. To discover objects, the biliary tree was swept with an 8.5 mm balloon and 12 mm balloon starting at the bifurcation numerous times. Sludge was swept from the duct. One stone was removed and a large amount of sludge was removed after many difficult passes. There appeared to be a persistent filling defect in the distal duct. To discover objects, the biliary tree was swept with a basket starting at the bifurcation. Nothing could be removed. A there was a persist filling defect we elected to place one 10 Fr by 7 cm biliary stent with a single external flap and a single internal flap was placed 7 cm into the common bile duct. Bile flowed through the stent. The stent was in good position. The endoscope was withdrawn from the patient. Impression: - Choledocholithiasis was found. Partial removal performed today. - One biliary stent was placed into the common bile duct Recommendation: - Avoid aspirin and nonsteroidal anti-inflammatory medicines for 1 week. - Clear liquid diet today. - Observe patient's clinical course following today's ERCP with therapeutic intervention. - Repeat ERCP in 6 weeks to remove stent and any further retained CBD stones. Diogenes Borden D.O. Diogenes Borden DO 02/16/2017 1:39:53 PM This report has been signed electronically. Note Initiated On: 02/16/2017 12:33 PM I attest to the content of the Intraoperative Record and orders documented therein, exceptions below
--- NOTE | 2017-02-16 13:48 | [facility] Post Operative Brief Note ---
Immediate Operative Summary Operative Date Feb 16, 2017. Pre-Operative Diagnosis Epigastric abdominal pain, elevated liver function test. Post-Operative Diagnosis Common bile stones, gastritis Procedure(s) Performed Upper Endoscopy, Endoscopic Retrograde Cholangiopancreatography with Stent Placement Surgeon Dr. Borden Associate Professor Of Art History Surgeon(s) None Estimated Blood Loss 5 ml Findings Gastritis Several CBD stones / sludge Specimens none per surgeon Drains Biliary stent placed Anesthesia General Complication(s) None Disposition Recovery Room / PACU
--- NOTE | 2017-02-16 14:21 | Anesthesiology Progress Note ---
Anesthesia Post Op Note Date & Time Feb 16, 2017 at 14:21 Vital Signs Pain Intensity: 0 Vital Signs Past 12 Hours Date Time Temp Pulse Resp B/P (MAP) Pulse Ox O2 Delivery O2 Flow Rate FiO2 02/16/17 14:00 93 17 114/67 93 Nasal Cannula 2 02/16/17 13:50 93 17 106/63 94 Mask 10 02/16/17 13:40 36.2 95 17 106/59 97 Mask 10 02/16/17 11:42 36.8 101 20 138/95 (109) 92 Room Air 02/16/17 08:00 97 Room Air 02/16/17 07:15 36.7 94 18 150/108 (122) 97 Room Air 145/99 (114) 02/16/17 04:13 Room Air 02/16/17 04:00 36.8 87 16 143/99 (114) 96 Notes Mental Status: alert / awake / arousable, participated in evaluation Pt Amnestic to Procedure: Yes Nausea / Vomiting: adequately controlled Pain: adequately controlled Airway Patency, RR, SpO2: stable & adequate BP & HR: stable & adequate Hydration State: stable & adequate Anesthetic Complications: no major complications apparent
[2017-02-17] MEDS: PANTOprazole INJ 40 MG in DEXTROSE 5% 100ML IV SCH ×2 (02:12→06:26)
[2017-02-17 05:10] VITALS: BP 101/63; PULSE 82; TEMP 36.7; O2SAT 96
[2017-02-17] MEDS: SODIUM CHLORIDE 0.9% 1000ML 1,000 ML IV SCH (05:37)
[2017-02-17] MEDS: CIPROFLOXACIN / D5W 400 MG in PREMIXED IN D5W 200 ML IV SCH (05:37)
[2017-02-17 06:12] LABS: BASO % 0.2 %; BASO ABS # 0.01 K/uL (0-0.2); COMPLETE YES; EOS % 0.9 %; HEMATOCRIT 40.4 % (42-52); IG% 0.2 %; LYMPH % 16.6 %; LYMPH ABS # 0.96 K/uL (1.2-3.4); MEAN CELL VOLUME 83.8 fL (80-100); MEAN CORPUSCULAR HEMOGLOBIN 28.8 pg (25-34); MEAN CORPUSCULAR HGB CONC 34.4 g/dl (32-36); MEAN PLATELET VOLUME 9.6 fL (7.4-10.4); MONO % 9.9 %; NEUT % 72.2 %; PLATELET COUNT 226 K/uL (130-400); RED BLOOD COUNT 4.82 M/uL (4.7-6.1); WHITE BLOOD COUNT 5.78 K/uL (4.8-10.8)
[2017-02-17 06:47] LABS: ALT/SGPT 537 U/L (12-78); BLOOD UREA NITROGEN 5 mg/dl (7-18); BUN/CREATININE RATIO 7.1 (10-20); CALCIUM 8.5 mg/dl (8.5-10.1); CARBON DIOXIDE 25 mmol/L (21-32); CHLORIDE 106 mmol/L (98-107); CREATININE 0.65 mg/dl (0.60-1.40); GLUCOSE 104 mg/dl (70-99); POTASSIUM 3.5 mmol/L (3.5-5.1); SODIUM 139 mmol/L (136-145)
[2017-02-17 06:59] LABS: ALB/GLOB RATIO 0.9 (0.9-2); ALKALINE PHOSPHATASE 161 U/L (45-117); AST/SGOT 243 U/L (15-37)
[2017-02-17 07:56] VITALS: BP 100/65; PULSE 88; TEMP 36.6; O2SAT 96
[2017-02-17 08:00] VITALS: O2SAT 96
[2017-02-17] MEDS: METRONIDAZOLE / NSS 500 MG in PREMIXED NSS 100 ML IV SCH (08:46)
[2017-02-17] MEDS: BuPROPion XL 300 MG TABCR PO SCH (08:47)
[2017-02-17] MEDS: FLUOXETINE HCL 20 MG CAP PO SCH (08:47)
--- NOTE | 2017-02-17 11:11 | Progress Note ---
Internal Med Progress Note Date of Service: Feb 17, 2017. Provider Documentation: SUBJECTIVE: Seen and examined at bedside. Doing well this morning. Denies nausea, vomiting, diarrhea, abd pain Got upper GI endoscopy and ERCP yesterday Offers no complaints OBJECTIVE: Vital Signs-as noted below Physical Exam: General Appearance:Moderately built and nourished, mild distress Head: normocephalic, Atraumatic Eyes: normal inspection, EOMI, PERRL Neck: supple, Trachea midline Respiratory/Chest: Normal breath sounds, CTA Cardiovascular: S1, S2, No murmur Abdomen/GI:Soft, non tender, Bowel sounds present Extremities/Musculoskelatal:normal inspection, no edema Neurologic/Psych:AAOX3, grossly no focal neurological deficits Skin: normal color, warm Lab data as noted below. ASSESSMENT & PLAN: CHOLEDOCHOLITHIASIS s/p BILIARY STENT PLACEMENT S/P Endoscopy and ERCP on 02/16/17 Chronic Gastritis on Endoscopy:Pathology report pending CT ABD: CBD and cyst duct distention Appreciate GI input S/P PPI drip and Cipro/ Flagyl Appreciate input from GI (discussed with ) Advance to low fat diet as tolerated DC IV fluids Start Protonix 40mg BID, sucralfate 1gm BID for 6 weeks Avoid Aspirin, NSAIDs for 1 week Needs for follow up with GI in 6 weeks for biliary stent removal TRANSAMINITIS secondary to above Tylenol level < 2 LFTs improving SINUS TACHYCARDIA: Secondary to pain monitor Resolved ANXIETY Continue Prozac and Wellbutrin ? H/O HEMATEMESIS: S/P Endoscopy: chronic gastritis No active bleeding Hb stable Continue PPI, sucralfate DVT Px SCD's DISPOSITION Plan to discharge home today if tolerates diet Follow up with Dr. Miranda for primary care on 02/20/17 at 11:05AM with blood test (Comprehensive metabolic panel) Follow up with your special delivery worker in 2-3 weeks as advised Avoid Aspirin, NSAIDs for 1 week Get biliary stent removed in 6 weeks as advised PROCEDURES: CT abdomen: 1. The common bile duct and the cystic duct remnant are distended, and the wall of the common bile duct and cystic duct is thickened and hyperemic. There is surrounding inflammatory stranding and trace fluid in the chantel hepatis. Correlate clinically for evidence of infection/cholangitis. A retained gallstone is not identified by CT but not excluded. GI consultation is recommended. 2. There is mild intrahepatic biliary ductal dilatation. The intrahepatic bile ducts are otherwise normal in appearance. 3. Mild hepatic steatosis. Vital Signs: Date Time Temp Pulse Resp B/P (MAP) Pulse Ox O2 Delivery O2 Flow Rate FiO2 02/17/17 08:00 96 Room Air 2.0 02/17/17 07:56 36.6 88 18 100/65 (77) 96 Room Air 02/17/17 05:10 36.7 82 20 101/63 (76) 96 Room Air 02/17/17 04:00 Room Air 02/17/17 00:00 Room Air 02/16/17 23:37 36.6 85 20 111/69 (83) 92 Room Air 02/16/17 20:00 97 Room Air 02/16/17 19:38 37.0 93 18 108/68 (81) 97 Room Air 02/16/17 16:00 93 Room Air 02/16/17 15:13 37.0 82 22 112/71 (85) 95 Nasal Cannula 2.0 02/16/17 14:20 36.7 88 17 110/74 94 Nasal Cannula 2 02/16/17 14:10 88 16 120/71 93 Nasal Cannula 2 02/16/17 14:00 93 17 114/67 93 Nasal Cannula 2 02/16/17 13:50 93 17 106/63 94 Mask 10 02/16/17 13:40 36.2 95 17 106/59 97 Mask 10 Lab Results: Results Past 24 Hours Test 02/17/17 05:46 Range/Units White Blood Count 5.78 4.8-10.8 K/uL Red Blood Count 4.82 4.7-6.1 M/uL Hemoglobin 13.9 14.0-18.0 g/dL Hematocrit 40.4 42-52 % Mean Corpuscular Volume 83.8 80-100 fL Mean Corpuscular Hemoglobin 28.8 25-34 pg Mean Corpuscular Hemoglobin Concent 34.4 32-36 g/dl Platelet Count 226 130-400 K/uL Mean Platelet Volume 9.6 7.4-10.4 fL Neutrophils (%) (Auto) 72.2 % Lymphocytes (%) (Auto) 16.6 % Monocytes (%) (Auto) 9.9 % Eosinophils (%) (Auto) 0.9 % Basophils (%) (Auto) 0.2 % Neutrophils # (Auto) 4.18 1.4-6.5 K/uL Lymphocytes # (Auto) 0.96 1.2-3.4 K/uL Monocytes # (Auto) 0.57 0.11-0.59 K/uL Eosinophils # (Auto) 0.05 0-0.5 K/uL Basophils # (Auto) 0.01 0-0.2 K/uL RDW Standard Deviation 43.1 36.4-46.3 fL RDW Coefficient of Variation 14.0 11.5-14.5 % Immature Granulocyte % (Auto) 0.2 % Immature Granulocyte # (Auto) 0.01 0.00-0.02 K/uL Sodium Level 139 136-145 mmol/L Potassium Level 3.5 3.5-5.1 mmol/L Chloride Level 106 98-107 mmol/L Carbon Dioxide Level 25 21-32 mmol/L Anion Gap 8.0 3-11 mmol/L Blood Urea Nitrogen 5 7-18 mg/dl Creatinine 0.65 0.60-1.40 mg/dl Est Creatinine Clear Calc Drug Dose 198.1 ml/min Estimated GFR () > 150.0 Estimated GFR (Non- 134.3 BUN/Creatinine Ratio 7.1 10-20 Random Glucose 104 70-99 mg/dl Calcium Level 8.5 8.5-10.1 mg/dl Total Bilirubin 3.9 0.2-1 mg/dl Aspartate Amino Transf (AST/SGOT) 243 15-37 U/L Alanine Aminotransferase (ALT/SGPT) 537 12-78 U/L Alkaline Phosphatase 161 45-117 U/L Total Protein 6.4 6.4-8.2 gm/dl Albumin 3.1 3.4-5.0 gm/dl Globulin 3.3 2.5-4.0 gm/dl Albumin/Globulin Ratio 0.9 0.9-2
[2017-02-17] MEDS ORDERED: SUCRALFATE 1 GM TAB PO SCH (11:30)
[2017-02-17 11:47] VITALS: BP 120/71; PULSE 85; TEMP 36.4; O2SAT 99
[2017-02-17 12:00] VITALS: O2SAT 96
[2017-02-17] MEDS ORDERED: PRT40 PO (12:02)
[2017-02-17] MEDS ORDERED: SUCR1TAB PO (12:02)
--- NOTE | 2017-02-17 12:06 | Discharge Summary ---
Discharge Summary Date of Service Feb 17, 2017. Discharge Summary Admission Date: Feb 15, 2017 at 18:05 Discharge Date: Feb 17, 2017 Discharge Disposition: Home Principal Diagnosis: Choledocholithiasis, Chronic gastritis Procedures: CT abdomen: 1. The common bile duct and the cystic duct remnant are distended, and the wall of the common bile duct and cystic duct is thickened and hyperemic. There is surrounding inflammatory stranding and trace fluid in the chantel hepatis. Correlate clinically for evidence of infection/cholangitis. A retained gallstone is not identified by CT but not excluded. GI consultation is recommended. 2. There is mild intrahepatic biliary ductal dilatation. The intrahepatic bile ducts are otherwise normal in appearance. 3. Mild hepatic steatosis. ERCP with biliary stent placement Upper GI endoscopy Consultations: Gastroenterology Pending Studies/Follow-Up: Follow up with Dr. Miranda for primary care on 02/20/17 at 11:05AM with blood test (Comprehensive metabolic panel) Follow up with your electronic integrated systems mechanic in 2-3 weeks as advised Avoid Aspirin, NSAIDs for 1 week Get biliary stent removed in 6 weeks as advised Medication Reconciliation New Medications: Pantoprazole (Pantoprazole Sodium) 40 Mg Tab 40 MG PO BID for 42 Days, #84 TAB Sucralfate (Sucralfate) 1 Gm Tab 1 GM PO BID for 42 Days, #84 TAB Continued Medications: Bupropion (Wellbutrin-Xl) 300 Mg Tabcr 300 MG PO DAILY, TAB Cyclobenzaprine Hcl (Flexeril) 10 Mg Tab 10 MG PO BID PRN for Muscle Spasms, #21 TAB Fluoxetine (Prozac) 20 Mg Cap 20 MG PO DAILY, CAP Ondasetron Odt (Zofran Odt) 4 Mg Tab 4 MG SL Q6H PRN for Nausea or Vomiting, #6 TAB Oxycodone/Acetaminophen 5MG/325MG (Percocet 5MG/325MG) Tab 1-2 TABLETS PO Q4H PRN for Pain, TAB Discontinued Medications: Acetaminophen (Acetaminophen) 500 Mg Tab 1-2 TAB PO Q8 PRN for Pain for 30 Days, TAB 1 Refill Admission Information HPI (per Admitting provider): This is a 26 year old male with PMH of TBI with residual left sided weakness, ADHD, anxiety, hx lap cholecystectomy, who presents to the ED with epigastric pain. He started having thoracic back pain a few weeks ago. No injury. Was seen in ER on February 09 for thoracic back pain, chest pain, and vomiting. Had unremarkable EKG, CXR, CTA chest, and labs. Pain was thought to have musculoskeletal pain and gastroenteritis. He was sent home with Percocet and Zofran. Patient continued with the pain and was seen at clinic and started on muscle relaxer and Tylenol. Pt's mother states patient had 33 tabs of Tylenol since 3 days ago. He was taking NSAIDs last weekend only. Pt states pain has extended to epigastric area. Pain is not related to eating. Morphine helped but he states it is wearing off. Patient was vomiting last Sunday and 2 nights ago and thinks he may have seen a teaspoon of red material in the emesis. He did not note any coffee ground emesis, hematochezia, or melena. Has not been eating food for past 2 days, but is drinking liquids. Has had cold sweats. Pt was seen by Dr. Worthington in clinic today and was sent to ER to r/o pancreatitis or perforated/ bleeding ulcer. Denies chest pain, SOB, diarrhea, dysuria, frequency. Patient had cholecystectomy in Aug 2016 and ERCP in [place] in Sep 2016 at which time biliary stones were removed as per patient's mother. Patient denies history of PUD or pancreatitis. Physical Exam (per Admitting): General Appearance: WD/WN, no apparent distress Head: normocephalic, atraumatic Eyes: normal inspection, sclerae normal ENT: hearing grossly normal, pharynx normal Neck: supple, trachea midline Respiratory/Chest: lungs clear, normal breath sounds, no respiratory distress, no accessory muscle use Cardiovascular: no murmur, + tachycardia (regular rhythm rate 90's) Abdomen/GI: normal bowel sounds, soft, + pertinent finding (tender in LUQ. no guarding. ) Back: normal inspection, no CVA tenderness, no muscle spasm, + pertinent finding (no paraspinal muscle tenderness in thoracic spine ) Extremities/Musculoskelatal: no calf tenderness, no pedal edema Neurologic/Psych: alert, normal mood/affect, oriented x 3 Skin: normal color, warm/dry Hospital Course CHOLEDOCHOLITHIASIS s/p BILIARY STENT PLACEMENT S/P Endoscopy and ERCP on 02/16/17 Chronic Gastritis on Endoscopy:Pathology report pending CT ABD: CBD and cyst duct distention Appreciate GI input S/P PPI drip and Cipro/ Flagyl Appreciate input from GI (discussed with ) Advance to low fat diet as tolerated DC IV fluids Start Protonix 40mg BID, sucralfate 1gm BID for 6 weeks Avoid Aspirin, NSAIDs for 1 week Needs for follow up with GI in 6 weeks for biliary stent removal TRANSAMINITIS secondary to above Tylenol level < 2 LFTs improving SINUS TACHYCARDIA: Secondary to pain monitor Resolved ANXIETY Continue Prozac and Wellbutrin ? H/O HEMATEMESIS: S/P Endoscopy: chronic gastritis No active bleeding Hb stable Continue PPI, sucralfate DVT Px SCD's DISPOSITION Plan to discharge home today if tolerates diet Follow up with Dr. Miranda for primary care on 02/20/17 at 11:05AM with blood test (Comprehensive metabolic panel) Follow up with your electronic integrated systems mechanic in 2-3 weeks as advised Avoid Aspirin, NSAIDs for 1 week Get biliary stent removed in 6 weeks as advised PROCEDURES: CT abdomen: 1. The common bile duct and the cystic duct remnant are distended, and the wall of the common bile duct and cystic duct is thickened and hyperemic. There is surrounding inflammatory stranding and trace fluid in the chantel hepatis. Correlate clinically for evidence of infection/cholangitis. A retained gallstone is not identified by CT but not excluded. GI consultation is recommended. 2. There is mild intrahepatic biliary ductal dilatation. The intrahepatic bile ducts are otherwise normal in appearance. 3. Mild hepatic steatosis. Total time spent on discharge = 35 minutes This includes examination of the patient, discharge planning, medication reconciliation, and communication with other providers. Discharge Instructions Discharge Instructions Date of Service Feb 17, 2017. Admission Reason for Admission: Epigastric Abdominal Pain, Lft Elevation Discharge Discharge Diagnosis / Problem: Choledocholithiasis, Chronic gastritis Discharge Goals Goal(s): Decrease discomfort, Improve function Activity Recommendations Activity Limitations: resume your previous activity Exercise/Sports Limitations: as tolerated . Instructions / Follow-Up Instructions / Follow-Up Follow up with Dr. Miranda for primary care on 02/20/17 at 11:05AM with blood test (Comprehensive metabolic panel) Follow up with your electronic integrated systems mechanic in 2-3 weeks as advised Avoid Aspirin, NSAIDs for 1 week Get biliary stent removed in 6 weeks as advised Current Hospital Diet Patient's current hospital diet: Low Fat Diet Discharge Diet Recommended Diet: Low Fat Diet Procedures Procedures Performed: Upper Endoscopy, Endoscopic Retrograde Cholangiopancreatography with Stent Placement Pending Studies Studies pending at discharge: yes List of pending studies: Biopsy results from Endoscopy Medical Emergencies . Who to Call and When: Medical Emergencies: If at any time you feel your situation is an emergency, please call 911 immediately. . Non-Emergent Contact Non-Emergency issues call your: Primary Care Provider, Aerospace Project Engineer Call Non-Emergent contact if: you have a fever, your pain is not controlled, your pain is worsening, your pain is unusual for you, you have any medication questions . . "Provider Documentation" section prepared by Jamil Still. . VTE Core Measure Inpt VTE Proph given/why not?: SCD's
[2017-02-17 14:08] VITALS: BP 120/71; PULSE 85; TEMP 36.4; O2SAT 96
[2017-02-17] MEDS ORDERED: PANTOprazole SOD 40 MG TAB PO SCH (21:00)
--- NOTE | 2017-02-19 07:33 | DIAGNOSTIC IMAGING REPORT ---
INTRAOPERATIVE RADIOGRAPHS CLINICAL HISTORY: ERCP procedure. Fluoroscopy time: 226 seconds. FINDINGS: 10 spot fluoroscopic images of the right upper quadrant from an ERCP procedure are presented. Correlation is made with abdominal CT dated 02/15/2017. There is cannulation of the common bile duct. A large filling defect is identified within the distal common bile duct on the initial images, likely representing choledocholithiasis. The upstream common bile duct is distended. A balloon sweep of the common duct is performed. The filling defect has resolved on the final images. IMPRESSION: Intraoperative images from ERCP procedure as above. See operative report for detailed findings. Electronically signed by: Arturo Coffey M.D. 02/16/2017 1:49 PM Dictated Date/Time: 02/16/2017 1:45 PM
== END 2017-02-17 14:49 | disposition home or self-care (01) | DRG 445 ==
LOC: C.EDB 14:58 → C.MED 18:05 → ENRESERV 18:34
PROVIDERS: ADMIT Internal Medicine; ATTEND Internal Medicine
PROC: 0FC98ZZ Extirpation of Matter from Common Bile Duct, Via Natural or Artificial Opening Endoscopic (ICD-10-PCS; 2017-02-16)
PROC: 0F798DZ Dilation of Common Bile Duct with Intraluminal Device, Via Natural or Artificial Opening Endoscopic (ICD-10-PCS; 2017-02-16)
PROC: 0D968ZX Drainage of Stomach, Via Natural or Artificial Opening Endoscopic, Diagnostic (ICD-10-PCS; principal; 2017-02-16 08:30)
PROC: 0DB68ZX Excision of Stomach, Via Natural or Artificial Opening Endoscopic, Diagnostic (ICD-10-PCS; principal; 2017-02-16 08:30)
DX: K80.51 Calculus of bile duct without cholangitis or cholecystitis with obstruction (principal); G81.94 Hemiplegia, unspecified affecting left nondominant side; K92.0 Hematemesis; K29.50 Unspecified chronic gastritis without bleeding; K83.8 Other specified diseases of biliary tract; R00.0 Tachycardia, unspecified; F41.9 Anxiety disorder, unspecified; F17.200 Nicotine dependence, unspecified, uncomplicated; Z79.899 Other long term (current) drug therapy; Z90.49 Acquired absence of other specified parts of digestive tract; Z82.49 Family history of ischemic heart disease and other diseases of the circulatory system; X58.XXXS Exposure to other specified factors, sequela; Y99.8 Other external cause status

== ENCOUNTER 2017-03-29 11:05 | Day surgery (SDC) | payer BC ==
[~2017-03-29] VITALS: Ht 177.8 cm; Wt 95.0 kg
[~2017-03-29 11:05] MED LIST changes: +LACTATED RINGER'S 1000ML 1,000 ML IV SCH; -ONDA4TAB10 SL; -OXYC-57 PO; +PRT40 PO; +SUCR1TAB PO
[2017-03-29 11:29] VITALS: BP 117/71; PULSE 70; TEMP 36.5; O2SAT 97; Ht 177.8 cm; Wt 95.0 kg
[2017-03-29] MEDS ORDERED: SUCCINYLCHOLINE CHLORIDE 20 MG/ML 10 ML VIAL IV ONE (11:40)
[2017-03-29] MEDS ORDERED: DEXAMETHASONE SOD INJ 4 MG/ML VIAL ONE (11:40)
[2017-03-29] MEDS ORDERED: MIDAZOLAM HCL 1 MG/ML 2ML VIAL ONE (11:40)
[2017-03-29] MEDS ORDERED: ONDANSETRON INJ 2 MG/ML 2 ML VIAL ONE (11:40)
[2017-03-29] MEDS ORDERED: FENTANYL CITRATE INJ 50 MCG/1 ML 2 ML VIAL ONE (11:40)
[2017-03-29] MEDS ORDERED: ROCURONIUM BROMIDE 10 MG/ML 5 ML VIAL ONE (11:40)
[2017-03-29] MEDS ORDERED: PROPOFOL IV EMULSION 10 MG/ML 20 ML VIAL IV ONE (11:40)
[2017-03-29] MEDS ORDERED: LIDOCAINE HCL 2% 2 ML VIAL (20MG/ML) ONE (11:40)
[2017-03-29] MEDS ORDERED: ONDANSETRON INJ 2 MG/ML 2 ML VIAL IV PRN ×2 (11:45→14:30)
[2017-03-29] MEDS ORDERED: PROMETHAZINE HCL INJ 6.25 MG in SODIUM CHLORIDE 0.9% 50ML 50 ML IV PRN (11:45)
[2017-03-29] MEDS ORDERED: ATROPINE SULFATE 0.1 MG/ML 5ML SYR IV PRN (11:45)
[2017-03-29] MEDS ORDERED: FENTANYL CITRATE INJ 50 MCG/1 ML 2 ML VIAL IV PRN (11:45)
[2017-03-29] MEDS ORDERED: EpHEDrine SULFATE INJ 50 MG/ML AMP IV PRN (11:45)
[2017-03-29] MEDS ORDERED: LACTATED RINGER'S 1000ML 1,000 ML IV ONE (11:56)
[2017-03-29] MEDS ORDERED: INDOMETHACIN 50 MG SUPP PR ONE (12:00)
--- NOTE | 2017-03-29 12:49 | Endo History and Physical ---
History & Physical Date of Service: Mar 29, 2017. Chief Complaint: Abdominal pain Referring Physician: History of Present Illness The patient presents for follow-up ERCP today. He presented last month with complications of a retained common bile duct stone. He was found to have a distal common bile duct stricture and a biliary stent was placed. He is for repeat ERCP today with stent removal. Past Surgical History Hx Cardiac Surgery: No Hx Abdominal Surgery: Yes (GALLBLADDER, ERCP) Hx Post-Op Nausea and Vomiting: No Hx Cancer Surgery: No Hx Thoracic Surgery: No Hx Orthopedic: Yes (RIGHT LEG -) Hx Urinary Tract Surgery: No cholecystectomy Social History Smoking Status: Current Every Day Smoker Hx Substance Use: No Hx Alcohol Use: No Allergies Coded Allergies: Amoxicillin (Verified Allergy, Mild, RASH, 03/29/17) Current Medications Reported Home Medications Medications Dose Route/Sig Max Daily Dose Days Date Category Sucralfate 1 Gm Tab 1 Gm PO BID 42 02/17/17 Rx Pantoprazole Sodium (Pantoprazole) 40 Mg Tab 40 Mg PO BID 42 02/17/17 Rx Prozac (Fluoxetine HCl) 20 Mg Cap 20 Mg PO QAM 08/26/16 Reported Wellbutrin-Xl (Bupropion HCl) 300 Mg Tabcr 300 Mg PO QAM 08/26/16 Reported Vital Signs Weight (Kilograms): 95.00 Height (Feet): 5 Height (Inches): 10 Date Time Temp Pulse Resp B/P (MAP) Pulse Ox O2 Delivery O2 Flow Rate FiO2 03/29/17 11:29 36.5 70 18 117/71 (86) 97 Room Air Physical Exam General Appearance: no apparent distress Respiratory/Chest: Auscultation: breath sounds normal Cardiovascular: Heart Auscultation: RRR Abdomen: Inspection & Palpation: soft, RUQ tenderness Assessment and Plan ERCP plan an indwelling biliary stent. We have discussed the risks and benefits to include bleeding, infection, perforation, pancreatitis and need for repeat studies.
--- NOTE | 2017-03-29 13:55 | GI REPORT ---
Procedure Date: 03/29/2017 12:51 PM Procedure: ERCP Indications: Stent removal, Bile duct stricture Medicines: General Anesthesia Complications: No immediate complications. Estimated blood loss: Minimal. Estimated Blood Loss: Estimated blood loss was minimal. Procedure: Pre-Anesthesia Assessment: - Prior to the procedure, a History and Physical was performed, and patient medications, allergies and sensitivities were reviewed. The patient's tolerance of previous anesthesia was reviewed. - The risks and benefits of the procedure and the sedation options and risks were discussed with the patient. All questions were answered and informed consent was obtained. - Patient identification and proposed procedure were verified prior to the procedure by the physician, the nurse and the mirror silverer. The procedure was verified in the procedure room. - Pre-procedure physical examination revealed no contraindications to sedation. - ASA Grade Assessment: II - A patient with mild systemic disease. - After reviewing the risks and benefits, the patient was deemed in satisfactory condition to undergo the procedure. - The anesthesia plan was to use general anesthesia. - Immediately prior to administration of medications, the patient was re-assessed for adequacy to receive sedatives. - The heart rate, respiratory rate, oxygen saturations, blood pressure, adequacy of pulmonary ventilation, and response to care were monitored throughout the procedure. - The physical status of the patient was re-assessed after the procedure. After obtaining informed consent, the scope was passed under direct vision. Throughout the procedure, the patient's blood pressure, pulse, and oxygen saturations were monitored continuously. The scope was introduced through the mouth, and advanced to the duodenum and used to inject contrast into the bile duct. The ERCP was accomplished without difficulty. The patient tolerated the procedure well. Findings: A general car yard supervisor film of the abdomen was obtained. Surgical clips, consistent with previous cholecystectomy, were seen in the area of the right upper quadrant of the abdomen. The esophagus was successfully intubated under direct vision without detailed examination of the pharynx, larynx, and associated structures, and upper GI tract. The upper GI tract was grossly normal. A biliary sphincterotomy had been performed. The sphincterotomy appeared open. One biliary stent originating in the biliary tree was emerging from the major papilla. One stent was removed from the common bile duct using a snare. The bile duct was deeply cannulated with the short-nosed traction sphincterotome (Omni 35) and 0.035 in Acrobat guidewire. Contrast was injected. I personally interpreted the bile duct images. Contrast extended to the hepatic ducts. The lower third of the main bile duct contained a single persistent segmental stenosis of about 10 mm in length. The biliary sphincterotomy was extended with a monofilament short-tip traction sphincterotome using ERBE electrocautery. There was no post-sphincterotomy bleeding. To discover objects, the biliary tree was swept with an 8.5 mm balloon and 12 mm balloon starting at the bifurcation. Sludge was swept from the duct. Two stones were removed. No stones remained. After passage of the balloon, some bleeding was not from the sphincterotomy site. Cells for cytology were obtained by brushing the lower third of the main bile duct. One 10 Fr by 7 cm biliary stent with a single external flap and a single internal flap was placed 7 cm into the common bile duct. Bile flowed through the stent. The stent was in good position. Due to persistent oozing, the sphincterotomy site was successfully injected with 2 mL of a 1:10,000 solution of epinephrine through the ERCP scope for hemostasis (Crammer catheter). The endoscope was withdrawn from the patient. Impression: - One stent was removed from the common bile duct. - A segmental biliary stricture was found. The stricture was inflammatory appearing. - A sphincterotomy was extended. - Choledocholithiasis was found. Complete removal was accomplished by biliary sphincterotomy and balloon extraction. - 7 cm 10 Fr biliary stent placed - Sphincterotomy site treated with epinephrine due to bleeding after balloon extraction. Recommendation: - Avoid aspirin and nonsteroidal anti-inflammatory medicines for 1 week. - Discharge patient to home (ambulatory). - Clear liquid diet today. - Await cytology results. - Perform an upper endoscopic ultrasound (UEUS) at appointment to be scheduled. - Repeat ERCP in 6 weeks to remove stent. Diogenes Borden D.O. Diogenes Borden, 03/29/2017 1:55:36 PM This report has been signed electronically. Note Initiated On: 03/29/2017 12:51 PM I attest to the content of the Intraoperative Record and orders documented therein, exceptions below
--- NOTE | 2017-03-29 14:07 | DIAGNOSTIC IMAGING REPORT ---
ERCP BILIARY DUCTAL CLINICAL HISTORY: 26 years-old Male presenting with ERCP. TECHNIQUE: 14 fluoroscopic spot image(s) obtained as part of intraoperative procedure. COMPARISON: 02/16/2017. FINDINGS/IMPRESSION: Intraoperative fluoroscopic spot images from endoscopic retrograde cholangiopancreatography demonstrate guidewire introduced into the left hepatic duct. Injection of contrast opacifies the nondilated extrahepatic and proximal intrahepatic ducts. Conventional intrahepatic biliary bifurcation. Relatively less opacification of the left hepatic ducts beyond the proximal portion comparison to the right hepatic ducts. No convincing evidence of a focal filling defect to suggest choledocholithiasis. Cholecystectomy clips noted. Nondilated remnant cystic duct. Please see surgical report for further details. Fluoroscopy dosage (mGy): Not available. Fluoroscopy time: 1 minute 28 seconds. Number of fluoroscopic spot images: 14. Electronically signed by: Saad Leon M.D. 03/29/2017 2:06 PM Dictated Date/Time: 03/29/2017 2:02 PM
--- NOTE | 2017-03-29 14:18 | [facility] Post Operative Brief Note ---
Immediate Operative Summary Operative Date Mar 29, 2017. Pre-Operative Diagnosis Stent removal Post-Operative Diagnosis Persistent biliary stricture Procedure(s) Performed Endoscopic Retrograde Cholangiopancreatogram with Stent Removal, extension of a biliary sphincterotomy Surgeon Michi Line Assembler Surgeon(s) Endoscopy staff Estimated Blood Loss 5 Findings Persistent biliary stricture Sphincterotomy extended 1-2 gallstones removed Specimens [place] cytology obtained from the common bile duct Anesthesia Gen. Complication(s) None Disposition Recovery Room / PACU
--- NOTE | 2017-03-29 14:19 | Discharge Instructions ---
Endoscopy Patient Instructions Date / Procedure(s) Performed Mar 29, 2017. ERCP Allergy Information Coded Allergies: Amoxicillin (Verified Allergy, Mild, RASH, 03/29/17) Discharge Date / Findings Mar 29, 2017. Persistent biliary stricture 2 small gallstones removed Medication Instructions Reported Home Medications Medications Dose Route/Sig Max Daily Dose Days Date Category Sucralfate 1 Gm Tab 1 Gm PO BID 42 02/17/17 Rx Pantoprazole Sodium (Pantoprazole) 40 Mg Tab 40 Mg PO BID 42 02/17/17 Rx Prozac (Fluoxetine HCl) 20 Mg Cap 20 Mg PO QAM 08/26/16 Reported Wellbutrin-Xl (Bupropion HCl) 300 Mg Tabcr 300 Mg PO QAM 08/26/16 Reported Provider Instructions Activity Restrictions - No exercising or heavy lifting for 24 hours. - Do not drink alcohol the day of the procedure. - Do not drive a car or operate machinery until the day after the procedure. - Do not make any important decisions or sign important papers in 24 hours after the procedure. Following Day: - Return to full activity which may include returning to work/school. Diet Start your diet with liquids and light foods (jello, soup, juice, toast). Then eat your usual diet if not nauseated. Treatment For Common After Affects For mild abdominal pain, bloating, or excessive gas: - Rest - Eat lightly - Lie on right side Follow-Up Information Endoscopic ultrasound to be scheduled Repeat ERCP in 6-8 weeks for stent removal Anesthesia Information What You Should Know You have had a procedure that required some medicine to reduce anxiety and discomfort. This treatment is called moderate sedation. After receiving the treatment, you may be sleepy, but you will be able to breathe on your own. The effects of the treatment may last for several hours. Follow these instructions along with Activity/Diet recommendations noted above: * Do NOT do anything where dizziness or clumsiness would be dangerous. * Rest quietly at home today, then you can be up and about tomorrow. * Have a responsible person stay with you the rest of today. * You may have had an I.V. today. If so, you may take the dressing off later today. Recommendations Call your doctor if: * Trouble breathing * Continuous vomiting for more than 24 hours * Temperature above 101 degrees * Severe abdominal pain or bloating * Pain not relieved by pain medicine ordered * There is increased drainage or redness from any incision * A large amount of rectal bleeding greater than 2-3 tablespoons. (If you had a polyp/s removed or have hemorrhoids, a small amount of blood - from the rectum is to be expected.) * You have any unanswered questions or concerns. IN THE EVENT OF A SERIOUS EMERGENCY, GO TO THE NEAREST EMERGENCY ROOM Your discharge instructions were prepared by provider Diogenes Borden. Patient Instructions Signature Page Eben Ware Patient (or Guardian) Signature/Date: I have read and understand the instructions given to me by my caregivers. Caregiver/RN/Doctor Signature/Date: The above-named patient and/or guardian has received patient instructions on this date. + Original Patient Signature Page (only) stays with chart. Please make copy for patient.
[2017-03-29 14:40] VITALS: BP 108/69; PULSE 64; TEMP 36.8; O2SAT 94
--- NOTE | 2017-03-29 14:49 | Anesthesiology Progress Note ---
Anesthesia Post Op Note Date & Time Mar 29, 2017 at 14:48 Vital Signs Pain Intensity: 0 Vital Signs Past 12 Hours Date Time Temp Pulse Resp B/P (MAP) Pulse Ox O2 Delivery O2 Flow Rate FiO2 03/29/17 14:25 36.0 68 16 119/78 91 Room Air 03/29/17 14:15 63 16 126/83 91 Room Air 03/29/17 14:05 68 16 121/81 96 Oxymask 10 03/29/17 13:55 68 16 134/92 96 Oxymask 10 03/29/17 13:49 36.0 69 16 143/91 94 Oxymask 10 03/29/17 11:29 36.5 70 18 117/71 (86) 97 Room Air Notes Mental Status: alert / awake / arousable, participated in evaluation Pt Amnestic to Procedure: Yes Nausea / Vomiting: adequately controlled Pain: adequately controlled Airway Patency, RR, SpO2: stable & adequate BP & HR: stable & adequate Hydration State: stable & adequate Anesthetic Complications: no major complications apparent
[2017-03-29 15:09] VITALS: BP 116/73; PULSE 59; TEMP 36.6; O2SAT 95
[2017-03-29 15:50] VITALS: BP 119/71; PULSE 55; TEMP 36.7; O2SAT 97
== END 2017-03-29 16:03 | disposition home or self-care (01) ==
LOC: C.ACU 11:05
PROVIDERS: ATTEND Internal Medicine Gastroenterology
DX: K80.80 Other cholelithiasis without obstruction (principal); Z45.89 Encounter for adjustment and management of other implanted devices; R10.9 Unspecified abdominal pain; K21.9 Gastro-esophageal reflux disease without esophagitis; F32.9 Major depressive disorder, single episode, unspecified; F41.9 Anxiety disorder, unspecified; Z90.49 Acquired absence of other specified parts of digestive tract; Z86.73 Personal history of transient ischemic attack (TIA), and cerebral infarction without residual deficits; Z87.820 Personal history of traumatic brain injury; Z82.49 Family history of ischemic heart disease and other diseases of the circulatory system; Z81.8 Family history of other mental and behavioral disorders; Z82.0 Family history of epilepsy and other diseases of the nervous system; F17.200 Nicotine dependence, unspecified, uncomplicated